=== PATIENT | female | born 1965 | race Caucasian/White ===

== ENCOUNTER 2016-05-31 01:26 | Emergency (ER) | payer BC ==
[~2016-05-31] VITALS: Ht 180.3 cm; Wt 61.2 kg
[~2016-05-31 01:26] MED LIST: ADDERAL20 MG ORAL; FERROUS SULFAT325 MG ORAL; KLONOPIN1 MG ORAL; LEVOFLOXACIN500 MG ORAL; NKM; NORCO 10-325 T1 EACH ORAL; VIBRAMYCIN100 MG ORAL
[2016-05-31] MEDS ORDERED: Norco 5mg/325mg tab ORAL ONE (02:00)
[2016-05-31] MEDS ORDERED: Bactrim DS (160mg/800mg) tab ORAL ONE (02:00)
[2016-05-31] MEDS ORDERED: BACTRIM DS TAB1 EAC1 ORAL (02:40)
--- NOTE | 2016-05-31 02:41 | Emergency Room Report ---
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 She's been here several times before. Also been to [place]. Patient presents with abscess 2 bilateral thigh. When it started draining. Denies any fever chills denies any nausea vomiting. Pain is 10 out of 10. The symptom in the past. She came here with several suitcases because she said she left her boyfriend. No other complaint. I admitted her last time and she was supposed to go to rehabilitation but eloped from the hospital. She never did go to rehabilitation. Supposedly she will go shortly. Allergies: Coded Allergies: CLONIDINE (Verified Allergy, Mild, 02/10/09) PENICILLINS (Unverified Allergy, Unknown, 12/25/15) Patient History Past Medical History: see triage record, old chart reviewed Past Surgical History: other Pertinent Family History: none Social History: Reports: drug use, smoking Now: No Immunizations: other Reviewed Nursing Documentation: PMH: Agreed, PSxH: Agreed Nursing Documentation-PMH Hx Cardiac Problems: No Hx Cancer: No Hx Gastrointestinal Problems: No Hx Neurological Problems: No Review of Systems Eye: Denies: blurred vision, eye pain ENT: Denies: ear pain, nose congestion, throat swelling Respiratory: Denies: cough, shortness of breath Cardiovascular: Denies: chest pain, palpitations Gastrointestinal: Denies: abdominal pain, diarrhea, nausea, vomiting Musculoskeletal: Denies: back pain, joint pain Skin: Reports: lesions, rash Neurological: Denies: headache, numbness Endocrine: Denies: increased thirst, increased urine Hematologic/Lymphatic: Denies: easy bruising All Other Systems: negative except mentioned in HPI Physical Exam Vital Signs Date Time Temp Pulse Resp B/P Pulse Ox O2 Delivery O2 Flow Rate FiO2 05/31/16 01:49 99.7 118 16 151/81 96 Room Air vitals with tachycardia Sp02 EP Interpretation: reviewed, normal General Appearance: no apparent distress, alert, thin, Chronically Ill Head: normocephalic, atraumatic Eyes: bilateral eye EOMI, bilateral eye PERRL ENT: hearing grossly normal, normal pharynx Neck: full range of motion, supple, no meningismus Respiratory: chest non-tender, lungs clear, normal breath sounds Cardiovascular #1: regular rate, rhythm, no murmur Gastrointestinal: normal bowel sounds, non tender, no mass, no organomegaly, no bruit, non-distended Musculoskeletal: back normal, gait/station normal, normal range of motion Neurologic: alert, oriented x3 Psychiatric: mood/affect normal Skin: warm/dry, other - Patient with multiple abrasion/previous lesion from scarring from previous abscesses. She has a draining abscess on the left thigh. There is some redness. Tender to palpation. She has a fluctuant area on the right thigh. Has surrounding tenderness and redness. Medical Decision Making Diagnostic Impression: Primary Impression: Abscess of left buttock Additional Impressions: Abscess of right buttock Amphetamine abuse Abrasion or friction burn of hand with infection ER Course Patient presents with abscesses in the same area. This is secondary to drug abuse. She grew out MRSA in the past. It is sensitive to fluoroquinolones and Bactrim. This is resistant to clindamycin. I gave her a dose of Bactrim here. I advised her to have the abscess I&D. She refused. She said she want to go to her infectious disease doctor. I explained to her that in order to get better and he can be I&D. Or it has to drainage own. My advice is to have an I &D. Patient is increased risk for sepsis and deterioration secondary to her poor immune system and drug use. She does not want to stay. She does not want to have the procedure done here. I went to the same process with her here in [place] and at [facility] before. Last Vital Signs Date Time Temp Pulse Resp B/P Pulse Ox O2 Delivery O2 Flow Rate FiO2 05/31/16 01:49 99.7 118 16 151/81 96 Room Air Status: improved Disposition: HOME, SELF-CARE Condition: Stable Scripts Trimethoprim/Sulfamethoxazole 160/800* (BACTRIM DS TABLET*) 1 Each Tablet 1 TAB ORAL Q12H, #20 TAB 0 Refills Prov: KERON ROSSI M.D. 05/31/16 Referrals: SAM ALEJANDRO (PCP) Additional Instructions: Followup your DrMain in one to 2 days. We'll abscess need to be drained. Return if you changed your mind. Return if symptom worsen. KERON ROSSI M.D. May 31, 2016 02:41
[2016-05-31 02:52] VITALS: BP 151/81
== END 2016-05-31 02:55 | disposition home or self-care (01) ==
LOC: EMR 01:43
DX: L02.31 Cutaneous abscess of buttock (principal); F15.10 Other stimulant abuse, uncomplicated; Z86.14 Personal history of Methicillin resistant Staphylococcus aureus infection; L02.416 Cutaneous abscess of left lower limb
CPT/HCPCS: 99283

== ENCOUNTER 2016-11-29 20:32 | Inpatient (IN) | payer BC ==
[~2016-11-29] VITALS: Ht 180.3 cm; Wt 59.0 kg
[~2016-11-29 20:32] MED LIST changes: +BACTRIM DS TAB1 EAC1 ORAL
[2016-11-29] MEDS ORDERED: Vancomycin 1 GM in NS 275 ML IV ONE (21:15)
[2016-11-29] MEDS ORDERED: Vancomycin 1gm inj IVPB ONE (21:52)
[2016-11-29] MEDS ORDERED: Tubing IV Cassette IV ONE (21:52)
[2016-11-29 21:59] LABS: MEAN CORPUSCULAR HEMOGLOBIN 20.5 PG (27.0-31.0); MEAN CORPUSCULAR HGB CONC 30.9 G/DL (32.0-36.0); MEAN CORPUSCULAR VOLUME 66 FL (80-99); MEAN PLATELET VOLUME 4.6 FL (6.5-10.1); PLATELET COUNT 530 K/UL (150-450); RED BLOOD COUNT 3.67 M/UL (4.20-5.40); RED CELL DISTRIBUTION WIDTH 16.3 % (11.6-14.8); WHITE BLOOD COUNT 12.3 K/UL (4.8-10.8)
[2016-11-29] MEDS ORDERED: HYDROmorphone 1mg/ml Carpuject IVP ONE (22:00)
[2016-11-29 22:13] LABS: PROTHROMBIN TIME 10.6 SEC (9.30-11.50)
[2016-11-29 22:27] LABS: TROPONIN I < 0.30 ng/mL (<=0.30)
[2016-11-29 22:30] LABS: ALANINE AMINOTRANSFERASE 6 U/L (3-33); ALBUMIN/GLOBULIN RATIO 0.6 (1.0-2.7); ANION GAP 12 (5-15); ASPARTATE AMINO TRANSFERASE 12 U/L (5-40); CALCIUM 8.6 mg/dL (8.6-10.2); CARBON DIOXIDE 27 mEQ/L (20-30); CHLORIDE 94 mEQ/L (98-107); CREATININE 0.7 mg/dL (0.5-0.9); GLOMERULAR FILTRATION RATE > 60 mL/min (>60); HEMOLYSIS 0; POTASSIUM 3.7 mEQ/L (3.4-4.9); SODIUM 133 mEQ/L (135-145)
[2016-11-29 22:50] VITALS: BP 105/53
[2016-11-29 22:56] LABS: BAND NEUTROPHILS % (MANUAL) 2 % (0-8); BASOPHILS % (MANUAL) 0 % (0-2); EOSINOPHILS % (MANUAL) 3 % (0-3); LYMPHOCYTES % (MANUAL) 16 % (20-45); NEUTROPHILS % (MANUAL) 76 % (45-75); PLATELET ESTIMATE INCREASED; TOTAL CELLS COUNTED 100
[2016-11-29 22:57] LABS: ANISOCYTOSIS 1+; HYPOCHROMASIA 2+; MICROCYTES 2+; PLATELET MORPHOLOGY NORMAL; POLYCHROMASIA 1+
[2016-11-29] MEDS ORDERED: Miralax 17gm pkt ORAL PRN (23:00)
[2016-11-29] MEDS ORDERED: Nitroglycerin Subl 0.4mg tab (Bottle Of 25) SL PRN (23:00)
[2016-11-29] MEDS ORDERED: Bactrim DS (160mg/800mg) tab ORAL SCH (23:00)
[2016-11-29] MEDS ORDERED: DuoNeb 0.5-3(2.5)mg/3ml neb HHN PRN (23:00)
[2016-11-29 23:09] LABS: ERYTHROCYTE SEDIMENTATION RATE 115 MM/HR (0-20)
[2016-11-29 23:49] LABS: APPEARANCE,URINE SLIGHTLY CLOUDY; KETONES,URINE NEGATIVE (NEGATIVE); LEUKOCYTE ESTERASE ,URINE 1+ (NEGATIVE); NITRITE,URINE POSITIVE (NEGATIVE); PH,URINE 7 (4.5-8.0); PROTEIN,URINE NEGATIVE (NEGATIVE); UROBILINOGEN,URINE 1 MG/DL (0.0-1.0)
[2016-11-29 23:59] LABS: BACTERIA,URINE MANY /HPF; SQUAMOUS EPITHELIAL CELL,UR FEW /LPF (NONE/OCC)
[2016-11-30] MEDS: Morphine Sulfate 2mg/ml Inj IVP PRN ×2 (01:40→05:40)
--- NOTE | 2016-11-30 05:11 | Emergency Room Report ---
History of Present Illness General Chief Complaint: Skin Rash/Abscess Source: Patient, Medical Record Present Illness HPI Patient presents with worsening pain and swelling in her left hip area. She states she has an MRSA in flexion there at this time. She's had some chills without documented fever. The pain is severe at this time. She's also swelling and redness of the skin there. She's injected several different drugs into her muscles and skin. She states that she is sober at this time. She's on Klonopin. Is admitted for similar problem several times last year. She said I indeed performed in the past. Denies any dysuria, diarrhea, cough, sore throat, chest pain. She is depressed but not suicidal at this time. Allergies: Coded Allergies: CLONIDINE (Verified Allergy, Mild, 02/10/09) PENICILLINS (Unverified Allergy, Unknown, 12/25/15) Patient History Past Medical History: see triage record Past Surgical History: other - i and d Social History: Reports: drug use Social History Narrative own apartment Reviewed Nursing Documentation: PMH: Agreed, PSxH: Agreed Nursing Documentation-PMH Hx Cardiac Problems: No Hx Cancer: No Hx Gastrointestinal Problems: No Hx Neurological Problems: No Review of Systems All Other Systems: negative except mentioned in HPI Physical Exam Vital Signs Date Time Temp Pulse Resp B/P Pulse Ox O2 Delivery O2 Flow Rate FiO2 11/29/16 20:52 98.2 94 16 136/83 100 Room Air Sp02 EP Interpretation: reviewed, normal General Appearance: no apparent distress, GCS 15, Chronically Ill Head: normocephalic Eyes: bilateral eye PERRL, bilateral eye normal inspection ENT: moist mucus membranes Neck: supple Respiratory: lungs clear, normal breath sounds Cardiovascular #1: regular rate, rhythm Cardiovascular #2: 2+ radial (R) Gastrointestinal: normal inspection, normal bowel sounds, non tender, no mass, non-distended Musculoskeletal: back normal, gait/station normal, normal range of motion Neurologic: alert, oriented x3, other - slurred speech, grossly normal Psychiatric: depressed affect Skin: warm/dry, other - multiple injection sites with erythema, L hip area has indurated area and erythema Medical Decision Making Diagnostic Impression: Primary Impression: Cellulitis of left buttock Additional Impressions: Amphetamine abuse UTI (urinary tract infection) Qualified Codes: N30.00 - Acute cystitis without hematuria Opiate dependence Qualified Codes: F11.29 - Opioid dependence with unspecified opioid-induced disorder ER Course Patient presents with induration and erythema of the left hip area with fever. Differential includes abscess, cellulitis, injection granuloma, medication reaction amongst others. The patient has a long history of MRSA. The infected area is quite large and I am uncomfortable performing ID in the emergency department. The patient is chronically ill and I recommended she come into the hospital for IV antibiotics. Evaluation will be with labs, x-ray. We need to exclude osteomyelitis. In addition to that she will be treated with analgesia and also vancomycin after blood cultures were performed. Labs with leukocytosis. EKG chest x-ray unremarkable. Dr. Cruz was contacted. He is on vacation and signed out to Dr. Ortiz. Patient was admitted to medical floor under the care of Dr. Ortiz. Dr. Mcdonald called after noticing somebody else then ordered medication for her. It was made clear to this physician that Dr. Mcdonald the patient's primary physician. Improved with treatment. Laboratory Tests Test 11/29/16 21:30 11/29/16 22:00 White Blood Count 12.3 K/UL (4.8-10.8) H Red Blood Count 3.67 M/UL (4.20-5.40) L Hemoglobin 7.5 G/DL (12.0-16.0) L Hematocrit 24.4 % (37.0-47.0) L Mean Corpuscular Volume 66 FL (80-99) L Mean Corpuscular Hemoglobin 20.5 PG (27.0-31.0) L Mean Corpuscular Hemoglobin Concent 30.9 G/DL (32.0-36.0) L Red Cell Distribution Width 16.3 % (11.6-14.8) H Platelet Count 530 K/UL (150-450) H Mean Platelet Volume 4.6 FL (6.5-10.1) L Neutrophils (%) (Auto) % (45.0-75.0) Lymphocytes (%) (Auto) % (20.0-45.0) Monocytes (%) (Auto) % (1.0-10.0) Eosinophils (%) (Auto) % (0.0-3.0) Basophils (%) (Auto) % (0.0-2.0) Differential Total Cells Counted 100 Neutrophils % (Manual) 76 % (45-75) H Lymphocytes % (Manual) 16 % (20-45) L Monocytes % (Manual) 3 % (1-10) Eosinophils % (Manual) 3 % (0-3) Basophils % (Manual) 0 % (0-2) Band Neutrophils 2 % (0-8) Platelet Estimate Increased H Platelet Morphology Normal Polychromasia 1+ Hypochromasia 2+ Anisocytosis 1+ Microcytosis 2+ Erythrocyte Sedimentation Rate 115 MM/HR (0-20) H Prothrombin Time 10.6 SEC (9.30-11.50) Prothrombin Time INR 1.0 (0.9-1.1) PTT 31 SEC (23-33) Sodium Level 133 mEQ/L (135-145) L Potassium Level 3.7 mEQ/L (3.4-4.9) Chloride Level 94 mEQ/L (98-107) L Carbon Dioxide Level 27 mEQ/L (20-30) Anion Gap 12 (5-15) Blood Urea Nitrogen 19 mg/dL (7-23) Creatinine 0.7 mg/dL (0.5-0.9) Estimate Glomerular Filtration Rate > 60 mL/min (>60) Glucose Level 92 mg/dL (74-106) Lactic Acid Level 1.70 mmol/L (0.66-2.22) Calcium Level 8.6 mg/dL (8.6-10.2) Total Bilirubin 0.2 mg/dL (0.0-1.2) Aspartate Amino Transferase (AST) 12 U/L (5-40) Alanine Aminotransferase (ALT) 6 U/L (3-33) Alkaline Phosphatase 75 U/L (35-104) Total Creatine Kinase 57 U/L (26-140) Troponin I < 0.30 ng/mL (<=0.30) Total Protein 9.0 g/dL (6.6-8.7) H Albumin 3.4 g/dL (3.5-5.2) L Globulin 5.6 g/dL Albumin/Globulin Ratio 0.6 (1.0-2.7) L Urine Color Pale yellow Urine Appearance Slightly cloudy Urine pH 7 (4.5-8.0) Urine Specific [place] 1.030 (1.005-1.035) Urine Protein Negative (NEGATIVE) Urine Glucose (UA) Negative (NEGATIVE) Urine Ketones Negative (NEGATIVE) Urine Occult Blood 2+ (NEGATIVE) H Urine Nitrite Positive (NEGATIVE) H Urine Bilirubin Negative (NEGATIVE) Urine Urobilinogen 1 MG/DL (0.0-1.0) H Urine Leukocyte Esterase 1+ (NEGATIVE) H Urine RBC 2-4 /HPF (0 - 2) H Urine WBC 5-10 /HPF (0 - 2) H Urine Squamous Epithelial Cells Few /LPF (NONE/OCC) Urine Bacteria Many /HPF (NONE) H Urine Opiates Screen Positive (NEGATIVE) H Urine Barbiturates Screen Negative (NEGATIVE) Phencyclidine (PCP) Screen Negative (NEGATIVE) Urine Amphetamines Screen Positive (NEGATIVE) H Urine Benzodiazepines Screen Negative (NEGATIVE) Urine Cocaine Screen Negative (NEGATIVE) Urine Marijuana (THC) Screen Negative (NEGATIVE) EKG Diagnostic Results Rate: tachycardiac ST Segments: no acute changes Rhythm Strip Diag. Results EP Interpretation: yes Rhythm: no PVC's, no ectopy, other - ST Chest X-Ray Diagnostic Results Chest X-Ray Diagnostic Results : Chest X-Ray Ordered: Yes # of Views/Limited/Complete: 1 View Indication: Other EP Interpretation: Yes Interpretation: no consolidation, no effusion, no pneumothorax Impression: No acute disease Interpreting ER Provider: Electronically signed by Tevin Huynh MD Other X-Ray Diagnostic Results Other X-Ray Diagnostic Results : X-Ray ordered: Pelvis # of Views/Limited Vs Complete: 1 View Indication: Other Interpretation: no dislocation, no fractures, other - STS Impression: Other Interpreting ER Provider: Electronically signed by Tevin Huynh MD Last Vital Signs Date Time Temp Pulse Resp B/P Pulse Ox O2 Delivery O2 Flow Rate FiO2 11/29/16 23:20 100.7 97 16 105/53 99 Room Air Status: improved Disposition: ADMITTED INPATIENT Condition: Serious Referrals: LYUDMILA CRUZ (PCP) Tevin Huynh M.D. Nov 30, 2016 05:11
[2016-11-30 08:00] VITALS: BP 134/82
[2016-11-30] MEDS: Heparin 5000 units/ml inj SUBQ SCH ×2 (09:00→21:00)
[2016-11-30] MEDS ORDERED: Cefepime HCl 2 GM in D5W 110 ML IV SCH (09:00)
[2016-11-30] MEDS: HYDROmorphone 1mg/ml Carpuject IVP PRN ×4 (09:55→23:52)
[2016-11-30] MEDS: Vancomycin 1 GM in D5W 275 ML IVPB SCH ×2 (10:05→21:00)
--- NOTE | 2016-11-30 10:57 | Diagnostic Imaging Report ---
Indication: Chest pain Technique: One view of the chest Comparison: 06/04/2015 Findings: Lungs and pleural spaces are clear. There is evidence of prior left mastectomy and a prosthesis. Heart size is normal. No significant interim change Impression: No acute process This agrees with the preliminary interpretation provided by the emergency room physician
--- NOTE | 2016-11-30 10:58 | Diagnostic Imaging Report ---
Indication: Pain, no trauma Technique: One view of the pelvis Comparison: 06/04/2015 Findings: No acute fractures. No dislocations. Joint spaces are preserved. There are degenerative changes of the lower lumbar spine. There is considerable retained fecal material Impression: No acute process Degenerative spondylosis Constipation This agrees with the preliminary interpretation provided by the emergency room physician
[2016-11-30 11:58] VITALS: BP 134/75
--- NOTE | 2016-11-30 13:43 | Infectious Diseases Prog Note ---
Assessment/Plan Assessment/Plan Full consult dictated: A) 1) bilateral hip/leg abscesses with cellulitis 2) ? uti 3) leukocytosis 4) allergies - clonidine and pcn P) 1) vancomycin and cipro 2) check wc, uc, bc, labs 3) surgery evaluation for possible debridement 4) d/w Dr. Ortiz 5) thank you Subjective Allergies: Coded Allergies: CLONIDINE (Verified Allergy, Mild, 02/10/09) PENICILLINS (Unverified Allergy, Unknown, 12/25/15) Objective Vital Signs Last 24 Hour Vital Signs Date Time Temp Pulse Resp B/P Pulse Ox O2 Delivery O2 Flow Rate FiO2 11/30/16 11:58 97.9 66 20 134/75 98 Room Air 11/30/16 08:00 97.8 72 20 134/82 98 Room Air 11/29/16 23:20 100.7 97 16 105/53 99 Room Air 11/29/16 22:50 100.7 97 16 105/53 99 Room Air 11/29/16 22:28 98.2 11/29/16 20:52 98.2 94 16 136/83 100 Room Air Height (Feet): 5 Height (Inches): 11.00 Weight (Pounds): 130 Laboratory Tests Test 11/29/16 21:30 11/29/16 22:00 White Blood Count 12.3 K/UL (4.8-10.8) H Red Blood Count 3.67 M/UL (4.20-5.40) L Hemoglobin 7.5 G/DL (12.0-16.0) L Hematocrit 24.4 % (37.0-47.0) L Mean Corpuscular Volume 66 FL (80-99) L Mean Corpuscular Hemoglobin 20.5 PG (27.0-31.0) L Mean Corpuscular Hemoglobin Concent 30.9 G/DL (32.0-36.0) L Red Cell Distribution Width 16.3 % (11.6-14.8) H Platelet Count 530 K/UL (150-450) H Mean Platelet Volume 4.6 FL (6.5-10.1) L Neutrophils (%) (Auto) % (45.0-75.0) Lymphocytes (%) (Auto) % (20.0-45.0) Monocytes (%) (Auto) % (1.0-10.0) Eosinophils (%) (Auto) % (0.0-3.0) Basophils (%) (Auto) % (0.0-2.0) Differential Total Cells Counted 100 Neutrophils % (Manual) 76 % (45-75) H Lymphocytes % (Manual) 16 % (20-45) L Monocytes % (Manual) 3 % (1-10) Eosinophils % (Manual) 3 % (0-3) Basophils % (Manual) 0 % (0-2) Band Neutrophils 2 % (0-8) Platelet Estimate Increased H Platelet Morphology Normal Polychromasia 1+ Hypochromasia 2+ Anisocytosis 1+ Microcytosis 2+ Erythrocyte Sedimentation Rate 115 MM/HR (0-20) H Prothrombin Time 10.6 SEC (9.30-11.50) Prothromb Time International Ratio 1.0 (0.9-1.1) Activated Partial Thromboplast Time 31 SEC (23-33) Sodium Level 133 mEQ/L (135-145) L Potassium Level 3.7 mEQ/L (3.4-4.9) Chloride Level 94 mEQ/L (98-107) L Carbon Dioxide Level 27 mEQ/L (20-30) Anion Gap 12 (5-15) Blood Urea Nitrogen 19 mg/dL (7-23) Creatinine 0.7 mg/dL (0.5-0.9) Estimat Glomerular Filtration Rate > 60 mL/min (>60) Glucose Level 92 mg/dL (74-106) Lactic Acid Level 1.70 mmol/L (0.66-2.22) Calcium Level 8.6 mg/dL (8.6-10.2) Total Bilirubin 0.2 mg/dL (0.0-1.2) Aspartate Amino Transf (AST/SGOT) 12 U/L (5-40) Alanine Aminotransferase (ALT/SGPT) 6 U/L (3-33) Alkaline Phosphatase 75 U/L (35-104) Total Creatine Kinase 57 U/L (26-140) Troponin I < 0.30 ng/mL (<=0.30) Total Protein 9.0 g/dL (6.6-8.7) H Albumin 3.4 g/dL (3.5-5.2) L Globulin 5.6 g/dL Albumin/Globulin Ratio 0.6 (1.0-2.7) L Urine Color Pale yellow Urine Appearance Slightly cloudy Urine pH 7 (4.5-8.0) Urine Specific [place] 1.030 (1.005-1.035) Urine Protein Negative (NEGATIVE) Urine Glucose (UA) Negative (NEGATIVE) Urine Ketones Negative (NEGATIVE) Urine Occult Blood 2+ (NEGATIVE) H Urine Nitrite Positive (NEGATIVE) H Urine Bilirubin Negative (NEGATIVE) Urine Urobilinogen 1 MG/DL (0.0-1.0) H Urine Leukocyte Esterase 1+ (NEGATIVE) H Urine RBC 2-4 /HPF (0 - 2) H Urine WBC 5-10 /HPF (0 - 2) H Urine Squamous Epithelial Cells Few /LPF (NONE/OCC) Urine Bacteria Many /HPF (NONE) H Urine Opiates Screen Positive (NEGATIVE) H Urine Barbiturates Screen Negative (NEGATIVE) Phencyclidine (PCP) Screen Negative (NEGATIVE) Urine Amphetamines Screen Positive (NEGATIVE) H Urine Benzodiazepines Screen Negative (NEGATIVE) Urine Cocaine Screen Negative (NEGATIVE) Urine Marijuana (THC) Screen Negative (NEGATIVE) Current Medications Medications (Trade) Dose Ordered Sig/Gildardo Route PRN Reason Start Time Stop Time Status Last Admin Dose Admin Acetaminophen (Tylenol) 650 mg Q4H PRN ORAL fever 11/29/16 23:00 12/29/16 22:59 11/29/16 23:14 Albuterol/ Ipratropium (DuoNeb 0.5-3(2.5)mg/3ml) 3 ml Q4H PRN HHN Shortness of Breath 11/29/16 23:00 12/04/16 22:59 Ciprofloxacin (Cipro 400mg/ 200ml premix bag) 200 ml @ 200 mls/hr Q12HR IVPB 11/30/16 09:00 12/07/16 08:59 Dextrose (Dextrose 50%) STAT PRN IV Hypoglycemia 11/29/16 23:00 12/29/16 22:59 Heparin Sodium (Porcine) 5000 units 5,000 units EVERY 12 HOURS SUBQ 11/30/16 09:00 12/30/16 08:59 Hydromorphone HCl (Dilaudid) 1 mg Q4H PRN IVP For Pain 11/30/16 07:00 12/07/16 06:59 11/30/16 09:55 Nitroglycerin (Ntg) 0.4 mg Every 5 Minutes PRN SL Prn Chest Pain 11/29/16 23:00 12/29/16 22:59 Ondansetron HCl (Zofran) 4 mg Q4H PRN IVP Nausea & Vomiting 11/30/16 07:00 12/30/16 06:59 Polyethylene Glycol (Miralax) 17 gm DAILYPRN PRN ORAL Constipation 11/29/16 23:00 12/29/16 22:59 Temazepam (Restoril) 15 mg HSPRN PRN ORAL Insomnia 11/29/16 23:00 12/06/16 22:59 Vancomycin HCl 1 ea 1 ea DAILY PRN MISC PER PROTOCOL 11/29/16 23:15 12/29/16 23:14 Vancomycin HCl/ Dextrose (Vancomycin/D5W) 275 ml @ 183.3 mls/ hr Q12H IVPB 11/30/16 09:00 12/05/16 08:59 11/30/16 10:05 SAM ALEJANDRO Nov 30, 2016 13:43
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
[2016-11-30 16:00] VITALS: BP 143/83
--- NOTE | 2016-11-30 16:37 | History & Physical ---
History and Physical History & Physicial Osman Ortiz MD Nov 30, 2016 16:36
[2016-11-30] MEDS ORDERED: HydrALAZINE 10mg Tab ORAL PRN (19:15)
--- NOTE | 2016-11-30 19:15 | History and Physical Report ---
DATE OF ADMISSION: 11/29/2016 CHIEF COMPLAINT: Skin rashes and abscess. HISTORY OF PRESENT ILLNESS: This is a 51-year-old female with past medical history significant for substance abuse, heroin abuse, injectables with history of intravenous drug abuse who presented to the hospital complained about left hip tender to touch. The patient has a history of MRSA infection of the wound in the past and that she has complained about the chills without any documented fever. The pain became progressively worsening and subsequently, the patient decided to come to the hospital. Shortly after initial evaluation in the emergency, the patient was admitted to the hospital with cellulitis, abscess of the lower extremity and history of IV drug abuse. PAST MEDICAL HISTORY/PAST SURGICAL HISTORY: As above, history of drug abuse. History is very limited secondary to the patient. History is mostly taken from the ER chart and the patient at bedside, but she is is poor historian, did not want to communicate. Prior history of incision and drainage of abscess in the past. MEDICATIONS: Medications at home is significant for Adderall as well as a Bactrim. ALLERGIES: Clonidine and penicillin. SOCIAL HISTORY: The patient has a history of IV drug abuse, heroin. Denies any alcohol abuse. FAMILY HISTORY: Noncontributory. REVIEW OF SYSTEMS: Mostly as above. No fevers. Positive chills. No nausea or vomiting. Denies any hemoptysis or hematochezia. Complains of abdominal discomfort. Feeling depressed. No suicidal or homicidal ideation. PHYSICAL EXAMINATION: GENERAL: The patient is awake, responsive, no acute distress. VITAL SIGNS: On admission, temperature 98.2 degrees, pulse of 94, respirations 16, and blood pressure 136/83. HEAD AND NECK: Pupils are reactive to light. Extraocular movements are intact. Neck was supple. No JVD. LUNGS: Good air entry. No wheezes or rales. HEART: S1 and S2. Regular rhythm. No gallops. ABDOMEN: Soft, nondistended, and nontender. Positive bowel sounds. EXTREMITIES: No cyanosis or clubbing. Multiple injection of both sites was noted in the lower extremity as well as upper extremities left hip area as endurable area with erythema. NEUROLOGIC: Cranial nerves II through XII are grossly intact. Motor strength is 5/5 in all four extremities. LABORATORY AND DIAGNOSTIC DATA: On admission from the ER, WBC of 12.3, hemoglobin of 7.5, hematocrit 24 and platelet is 530,000. PT of 10, INR 1.0 and PTT of 31. Sodium 133, potassium 3.7, chloride 94, bicarbonate 27, BUN 19, creatinine 0.7, and glucose 92. Lactic acid 1.70. Troponin less than 0.30. Albumin is 3.4. Urinalysis has +2 occult blood, positive nitrates, and 5-10 WBC. PT of 10, INR 1.0 and PTT of 31. The patient had an x-ray of the hip shows that no acute process, degenerative spondylolysis, and constipation. Chest x-ray, no acute process. ASSESSMENT: 1. Abscess in the right thigh area with cellulitis. 2. History of substance abuse with intravenous drug abuse. 3. Anemia. 4. Urinary tract infection. PLAN: Admit the patient to medical/surgical. We will follow up with Dr. Eda Rankin from ID. Recommendation, vancomycin and Cipro. Surgical evaluation for incision and drainage and debridement of the wound. Pain medication. We will monitor laboratory in the morning. Code status is Full Code. Osman Ortiz M.D. DR: DANIELE JOB#: [id number] CC:
--- NOTE | 2016-11-30 19:45 | Consultation ---
DATE OF CONSULTATION: 11/30/2016 INFECTIOUS DISEASE CONSULTATION CONSULTING PHYSICIAN: Eda Rankin M.D. ATTENDING PHYSICIAN: Osman Ortiz M.D. REASON FOR CONSULTATION: Bilateral hip and leg abscesses and cellulitis and elevated white count, possible UTI. CHIEF COMPLAINT: The patient's chief complaint is cellulitis and abscesses. HISTORY OF PRESENT ILLNESS: This is a 51-year-old female, who comes in to [facility] with bilateral hip and leg abscesses and cellulitis. It is unclear how long the patient has been there, but she has severe pain. The patient was admitted for IV antibiotics and possible debridement. The patient is on vancomycin and Cipro. She is allergic to clonidine and penicillin. She has a history of Staph aureus since cellulitis I believe, possibly MRSA in the past. Infectious Disease consultation was requested for antibiotic management. Case was discussed with Dr. Ortiz and also discussed with the ER physician and the RN. PAST MEDICAL HISTORY: The patient's past medical history includes history of cellulitis and abscesses in the past. She has a history of MRSA infection it looks like. She has a history of a drug injection in the muscles and skin. No history of diabetes or hypertension. She also has a history of UTI in the past it looks like, anemia, opioid dependency, amphetamine use, and pain management. MEDICATIONS: Upon reviewing the MAR, she is on the following medications. She is on vancomycin and Cipro. Vancomycin has been dosed by pharmacy. She is also on Dilaudid. She is on Zofran, nitroglycerin, temazepam, and polyethylene. She is on acetaminophen and albuterol treatments. ALLERGIES: Clonidine and penicillin. SOCIAL HISTORY: Positive for drug abuse, looks like intravenous drug injection. Positive for smoking. She has a history of and polysubstance abuse. FAMILY HISTORY: Noncontributory. REVIEW OF SYSTEMS: Constitutional: The patient has generalized weakness and fatigue. No night sweats. She did have fevers coming in, but not chills at this time. Head And Neck: No head pain, neck pain, thrush, or dysphagia. Cardiac: No chest pain or palpitations. Gastrointestinal: No nausea, vomiting, or diarrhea. Genitourinary: No dysuria or frequency. Pulmonary: No congestion, hemoptysis, or shortness of breath. Cardiac: No chest pain or palpitations. Skin: No rash. Neurologic: No seizures. She has bilateral hip and leg abscesses and cellulitis. PHYSICAL EXAMINATION: GENERAL: Alert, responsive, and in no acute distress. VITAL SIGNS: T-max 100.7 degrees, pulse rate as high as 97, respiratory rate 20, pulse rate now is 66, temperature is 97.9 degrees, saturation 98%, and blood pressure 134/75. HEAD AND NECK: Oral exam, no thrush. Eye exam, no icterus. Normocephalic. No facial droop. No neck stiffness. Neck is supple. HEART: Regular. No gallop or murmur. LUNGS: Clear bilaterally. No rhonchi or rales. ABDOMEN: Soft. Positive bowel sounds. Nontender. SKIN: No maculopapular rash. She does have bilateral hip and leg cellulitis and abscesses. Clinically, there is warmth and induration in these areas. MUSCULOSKELETAL: No effusion or contractures. She has cellulitis as discussed and abscesses of the lower extremities. PERIPHERAL VASCULAR: No cyanosis or gangrene. RECTAL: Deferred. GENITOURINARY: No [place]. LINES: Line site is without phlebitis. NEUROLOGIC: Intact. Nonfocal. LABORATORY DATA: Laboratory data is as follows: White count 12.3 and hemoglobin 7.5. Creatinine is 0.7. UA had 1+ leukocyte esterase, 5 to 10 white blood cells, and many bacteria. Urine culture is pending. Blood cultures are pending. ASSESSMENT AND PLAN: 1. The patient has bilateral hip and leg abscesses and cellulitis, elevated white count, and fevers, questionable urinary tract infection. At this time, we will continue with vancomycin with Cipro. We will check wound culture, blood cultures, and urine culture. The patient will likely need a Surgery evaluation for possible debridement of the bilateral hip and leg abscesses with cellulitis. Check followup labs. Continue vancomycin and Cipro for now. 2. The patient has a history of anemia. 3. Pain management. 4. History of drug abuse. 5. History of smoking. 6. History of abscesses in the past and urinary tract infections. 7. History of amphetamine use. 8. Opioid dependency. 9. No history of diabetes or hypertension. 10. Allergies to clonidine and penicillin. 11. Social history is positive for smoking and drug abuse. 12. MAR was noted. 13. Case was discussed with RN. 14. Notes and records were reviewed. 15. Family history is noncontributory. 16. Case was discussed with Dr. Ortiz. Eda Rankin M.D. DR: SMILEY JOB#: [id number] CC:
[2016-11-30 20:00] VITALS: BP 148/86
--- NOTE | 2016-11-30 20:00 | Consultation ---
DATE OF CONSULTATION: INPATIENT CONSULTATION NOTE REASON FOR CONSULTATION: Bilateral soft tissue hip abscesses. HISTORY OF PRESENT ILLNESS: This is a 51-year-old female with a longstanding history of IV drug abuse including heroin as well as multiple polysubstance abuse and history of MRSA infection, who presented to the emergency department last night with a chief complaint of pain. The patient states that she is unwilling to answer my questions and the majority of the history was obtained from the chart. PAST MEDICAL HISTORY: Includes heroin use, IV drug use, history of narcotic dependency, history of pain management, anemia, and polysubstance abuse. PAST SURGICAL HISTORY: She also has a history of multiple hospital admissions for cellulitis. MEDICATIONS: She is currently on vancomycin. Please see medications in the medical order. ALLERGIES: Clonidine and penicillin. SOCIAL HISTORY: Positive for smoking and positive for heroin use. FAMILY HISTORY: Noncontributory. REVIEW OF SYSTEMS: Negative for fever and chills. No night sweats. I was unable to obtain any further information from her regarding the review of systems. PHYSICAL EXAMINATION: GENERAL: This is a well-developed female, who is in no distress. VITAL SIGNS: She has a temperature of 97.9 degrees, pulse of 66, respiratory rate of 20, blood pressure 134/75, and pulse oximetry of 98% on room air. EXTREMITIES: Evaluation of the bilateral lower extremities reveals large area of erythema and induration on both lower extremities covering the lateral hip as well as the lateral upper thigh area. There is mild tenderness to palpation. There are multiple track sharp noted throughout the extensive soft tissue area on each side. Upon palpation, no pus or fluid was able to be expressed from any of the openings. There is no odor. No fluctuance noted. LABORATORY DATA: Laboratory evaluation includes a white blood cell count dated 11/29/2016 of 12.3, hemoglobin 7.5, and hematocrit 24.4, and platelet count 530,000. Sodium level 133, potassium 3.7, chloride 94, and carbon dioxide 27. BUN is 19 and creatinine is 0.7. Glucose of 92. Lactic acid level is 1.7. ASSESSMENT: Pain. PLAN: The patient has a history of IV drug abuse and polysubstance abuse and has required multiple hospital admissions in the past for the same. She does have extensive erythema over the bilateral hips and upper lateral thigh areas with multiple visible track sharp noted. There is no fluid that was expressed from either side and no fluctuance on exam. The patient is at increased risk for wound healing issues. I am recommending an imaging study such as a CAT scan to assess for the presence of fluid collection within the subcutaneous tissue plane. In the absence of a fluid collection amenable to drainage, would recommend antibiotic management per ID. Other considerations include cellulitis versus a granulomatous reaction. Will follow the patient as needed. Erwin Luna M.D. DR: JEN JOB#: [id number] CC: ADRIENNE
--- NOTE | 2016-11-30 20:32 | Wound Care Consultation ---
Wound Assessment Wound Assessment : Wound Number: #1 Wound Present on Admission: Yes New Wound: No Status Change of Wound: No Wound Location Body Site Modif: left, right Wound Location Body Site: trochanter - and lower legs with multiple wounds and abscess on both hips Wound Type: lesion-etiology unknown Héctor Test: Does not Héctor Wound Thickness: Full Thickness Wound Drainage Description: Foul Purulent Wound Drainage Amount: Scant Wound Drainage Odor: None/Absent Tissue Surrounding Wound: Indurated Wound General Appearance: Reddened, Draining Wound Comment #1 Left and right trochanter abscess and multiple open wounds on both upper and lower legs Recommendation -Local wound care per MD order -Keep clean and dry -Optimize nutrition -Assess and f/u accordingly AZALIA STEVENS RN Nov 30, 2016 20:32
[2016-12-01] VITALS: BP 153/95
[2016-12-01] MEDS: HYDROmorphone 1mg/ml Carpuject IVP PRN ×5 (03:53→22:55)
[2016-12-01 04:00] VITALS: BP 148/73
[2016-12-01 08:00] VITALS: BP 152/97
[2016-12-01] MEDS: Heparin 5000 units/ml inj SUBQ SCH ×2 (08:05→20:50)
--- NOTE | 2016-12-01 10:58 | Pulmonology Progress Note ---
Assessment/Plan Assessment/Plan ASSESSMENT cellulitis Left buttock/hip bilateral hip abscess anemia UTI Polysubstance abuse ( IV drug abuse, amphetamine) hyponatremia cachexia possible severe protein calorie malnutrition HTN PLAN OF CARE [facility] floor abx fup with cx urine cx + GNR, blood cx preliminary negative, wound cx+ Staph aureus ID follows CT hip surgery eval noted wound care as per wound nurse recommendation transfuse-declined transfusion monitor HH, anemia workup ordered ( patient declined labs) stool OB s/p 1 L NS, judicious pain management, DVT prophayxlis venous Duplex BLE Hydralazine prn for elevated BP ( allergic to Clonidine) O2 HHN prn dietary eval 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 SS consult for placement case discussed and evaluated by supervising physician Subjective Allergies: Coded Allergies: CLONIDINE (Verified Allergy, Mild, 02/10/09) PENICILLINS (Unverified Allergy, Unknown, 12/25/15) Subjective no fever declined labs this am Objective Last 24 Hour Vital Signs Date Time Temp Pulse Resp B/P Pulse Ox O2 Delivery O2 Flow Rate FiO2 12/01/16 08:09 59 18 Room Air 12/01/16 08:00 97.7 56 20 152/97 99 Room Air 12/01/16 04:00 148/73 12/01/16 00:00 97.9 79 18 153/95 99 Room Air 11/30/16 20:21 97.3 11/30/16 20:05 70 20 Room Air 11/30/16 20:00 97.3 69 18 148/86 100 Room Air 11/30/16 16:00 97.8 68 20 143/83 100 Room Air 11/30/16 11:58 97.9 66 20 134/75 98 Room Air Intake and Output 11/30/16 12/01/16 19:00 07:00 Intake Total 360 ml Balance 360 ml Intake Oral 360 ml # Voids 2 2 # Bowel Movements 3 Objective General Appearance: no apparent distress, cachetic, other - awake, alert, chronically ill looking middle age female HEENT: normocephalic, atraumatic, anicteric, mucous membranes moist, PERRL Neck: non-tender, supple, normal inspection Respiratory/Chest: lungs clear, no respiratory distress, no accessory muscle use Cardiovascular/Chest: no JVD Abdomen: normal bowel sounds, non tender, soft Extremities: normal range of motion, non-tender, no calf tenderness, normal capillary refill, no edema Skin Exam: warm/dry, other - multiple injection sites with erythema, bilateral hip area with induration and erythema Neurologic: no motor/sensory deficits, alert, oriented x 3 Musculoskeletal: normal muscle bulk Microbiology Date/Time Source Procedure Growth Status 11/30/16 01:30 Wound Gram Stain - Final Resulted 11/30/16 01:30 Wound Culture - Preliminary Staphylococcus Aureus Resulted 11/29/16 22:00 Urine,Clean Catch Urine Culture - Preliminary Gram Negative Matt Resulted Current Medications Medications (Trade) Dose Ordered Sig/Gildardo Route PRN Reason Start Time Stop Time Status Last Admin Dose Admin Acetaminophen (Tylenol) 650 mg Q4H PRN ORAL fever 11/29/16 23:00 12/29/16 22:59 11/29/16 23:14 Albuterol/ Ipratropium (DuoNeb 0.5-3(2.5)mg/3ml) 3 ml Q4H PRN HHN Shortness of Breath 11/29/16 23:00 12/04/16 22:59 Dextrose (Dextrose 50%) STAT PRN IV Hypoglycemia 11/29/16 23:00 12/29/16 22:59 Heparin Sodium (Porcine) 5000 units 5,000 units EVERY 12 HOURS SUBQ 11/30/16 09:00 12/30/16 08:59 Hydralazine HCl (Apresoline) 10 mg Q6H PRN ORAL SBP > 160 11/30/16 19:15 12/30/16 19:14 Hydromorphone HCl (Dilaudid) 1 mg Q4H PRN IVP For Pain 11/30/16 07:00 12/07/16 06:59 12/01/16 07:58 Nitroglycerin (Ntg) 0.4 mg Every 5 Minutes PRN SL Prn Chest Pain 11/29/16 23:00 12/29/16 22:59 Ondansetron HCl (Zofran) 4 mg Q4H PRN IVP Nausea & Vomiting 11/30/16 07:00 12/30/16 06:59 12/01/16 03:53 Polyethylene Glycol (Miralax) 17 gm DAILYPRN PRN ORAL Constipation 11/29/16 23:00 12/29/16 22:59 Temazepam (Restoril) 15 mg HSPRN PRN ORAL Insomnia 11/29/16 23:00 12/06/16 22:59 Vancomycin HCl (Vanco rx to dose) 1 ea DAILY PRN MISC PER PROTOCOL 11/29/16 23:15 12/29/16 23:14 Vancomycin HCl/ Dextrose (Vancomycin/D5W) 275 ml @ 183.3 mls/ hr Q12H IVPB 11/30/16 09:00 12/05/16 08:59 11/30/16 10:05 David (Deisy)Flavia NP Dec 01, 2016 10:58
[2016-12-01] MEDS: Vancomycin 1 GM in D5W 275 ML IVPB SCH ×2 (12:38→20:43)
--- NOTE | 2016-12-01 13:13 | Internal Med Progress Note ---
Subjective Physician Name Osman Ortiz Attending Physician Osman Ortiz MD Current Medications Medications (Trade) Dose Ordered Sig/Gildardo Route PRN Reason Start Time Stop Time Status Last Admin Dose Admin Acetaminophen (Tylenol) 650 mg Q4H PRN ORAL fever 11/29/16 23:00 12/29/16 22:59 11/29/16 23:14 Albuterol/ Ipratropium (DuoNeb 0.5-3(2.5)mg/3ml) 3 ml Q4H PRN HHN Shortness of Breath 11/29/16 23:00 12/04/16 22:59 Dextrose (Dextrose 50%) STAT PRN IV Hypoglycemia 11/29/16 23:00 12/29/16 22:59 Heparin Sodium (Porcine) 5000 units 5,000 units EVERY 12 HOURS SUBQ 11/30/16 09:00 12/30/16 08:59 Hydralazine HCl (Apresoline) 10 mg Q6H PRN ORAL SBP > 160 11/30/16 19:15 12/30/16 19:14 Hydromorphone HCl (Dilaudid) 1 mg Q4H PRN IVP For Pain 11/30/16 07:00 12/07/16 06:59 12/01/16 12:37 Nitroglycerin (Ntg) 0.4 mg Every 5 Minutes PRN SL Prn Chest Pain 11/29/16 23:00 12/29/16 22:59 Ondansetron HCl (Zofran) 4 mg Q4H PRN IVP Nausea & Vomiting 11/30/16 07:00 12/30/16 06:59 12/01/16 03:53 Polyethylene Glycol (Miralax) 17 gm DAILYPRN PRN ORAL Constipation 11/29/16 23:00 12/29/16 22:59 Temazepam (Restoril) 15 mg HSPRN PRN ORAL Insomnia 11/29/16 23:00 12/06/16 22:59 Vancomycin HCl (Vanco rx to dose) 1 ea DAILY PRN MISC PER PROTOCOL 11/29/16 23:15 12/29/16 23:14 Vancomycin HCl/ Dextrose (Vancomycin/D5W) 275 ml @ 183.3 mls/ hr Q12H IVPB 11/30/16 09:00 12/05/16 08:59 8/19/17 12:38 Allergies: Coded Allergies: CLONIDINE (Verified Allergy, Mild, 02/10/09) PENICILLINS (Unverified Allergy, Unknown, 12/25/15) Subjective awake, alert, responsive, refused labs today Objective Last Vital Signs Date Time Temp Pulse Resp B/P Pulse Ox O2 Delivery O2 Flow Rate FiO2 12/01/16 08:09 59 18 Room Air 12/01/16 08:00 97.7 152/97 99 Microbiology Date/Time Source Procedure Growth Status 11/29/16 21:30 Blood Blood Culture - Preliminary NO GROWTH AFTER 24 HOURS Resulted 11/29/16 21:25 Blood Blood Culture - Preliminary NO GROWTH AFTER 24 HOURS Resulted 11/30/16 01:30 Wound Gram Stain - Final Resulted 11/30/16 01:30 Wound Culture - Preliminary Staphylococcus Aureus Resulted 11/29/16 22:00 Urine,Clean Catch Urine Culture - Preliminary Gram Negative Matt Resulted Intake and Output 11/30/16 12/01/16 19:00 07:00 Intake Total 360 ml Balance 360 ml Intake Oral 360 ml # Voids 2 2 # Bowel Movements 3 Objective HEAD AND NECK: Pupils are reactive to light. Extraocular movements are intact. Neck was supple. No JVD. LUNGS: Good air entry. No wheezes or rales. HEART: S1 and S2. Regular rhythm. No gallops. ABDOMEN: Soft, nondistended, and nontender. Positive bowel sounds. EXTREMITIES: No cyanosis or clubbing. Multiple injection of both sites was noted in the lower extremity as well as upper extremities left hip area as endurable area with erythema. NEUROLOGIC: Cranial nerves II through XII are grossly intact. Motor strength is 5/5 in all four extremities. Assessment/Plan Assessment/Plan 1. Abscess in the right thigh area with cellulitis. 2. History of substance abuse with intravenous drug abuse. 3. Anemia. 4. Urinary tract infection. PLAN: in medical/surgical. Dr. Eda Rankin from ID and Dr. Luna from surgery Abx: vancomycin IV Surgical evaluation for incision and drainage and debridement of the wound. Pain medication. monitor laboratory in the morning. Code status is Full Code. discuss with over the phone Osman Ortiz MD Dec 01, 2016 13:13
[2016-12-01] MEDS ORDERED: HYDROmorphone 1mg/ml Carpuject IVP ONE (15:00)
--- NOTE | 2016-12-01 15:27 | Consultation ---
History of Present Illness General Date patient seen: Nov 30, 2016 Chief Complaint: Skin Rash/Abscess Referring physician: dr Ortiz Reason for Consultation: inpatient management Present Illness HPI 51-year-old female with a longstanding history of IV drug abuse including heroine as well as multiple polysubstance abuse and history of MRSA infection, who presented to the emergency department last night with a chief complaint of pain. the pt was irritable mood , poor energy, anxiety and poor insight. the pt was reluctant to speak with me. the pt stated that she would only take Klonopin and Adderall. the pt gets medications from her primary doctor. the pt doesn't endorse si/hi. Allergies: Coded Allergies: CLONIDINE (Verified Allergy, Mild, 02/10/09) PENICILLINS (Unverified Allergy, Unknown, 12/25/15) Medication History Scheduled Dextroamphetamine/Amphetamine (Adderall 20 mg Tablet), 20 MG ORAL DAILY, ( Reported) Trimethoprim/Sulfamethoxazole 160/800* (Bactrim Ds Tablet*), 1 TAB ORAL Q12H Patient History History Provided By: Patient, Medical Record, PMD Healthcare decision maker Resuscitation status Full Code Advanced Directive on File Past Medical/Surgical History Past Medical/Surgical History: (1) Pain (2) Sepsis affecting skin (3) Abscess (4) Leukocytosis (5) abcess (6) Abrasion or friction burn of hand with infection (7) Abscess of left buttock (8) Abscess of right buttock (9) Cellulitis of chest wall (10) Anemia (11) Sepsis (12) Abscess of multiple sites (13) Opiate dependence (14) UTI (urinary tract infection) (15) Amphetamine abuse (16) Cellulitis of left buttock Review of Systems Constitutional: Reports: weakness Psychiatric: Reports: anxiety, depressed feelings, emotional problems, prior hx Physical Exam General Appearance: no apparent distress, alert, thin Neurologic: alert, oriented x 3, responsive, depressed affect Last 24 Hour Vital Signs Date Time Temp Pulse Resp B/P Pulse Ox O2 Delivery O2 Flow Rate FiO2 12/01/16 08:09 59 18 Room Air 12/01/16 08:00 97.7 56 20 152/97 99 Room Air 12/01/16 04:00 148/73 12/01/16 00:00 97.9 79 18 153/95 99 Room Air 11/30/16 20:21 97.3 11/30/16 20:05 70 20 Room Air 11/30/16 20:00 97.3 69 18 148/86 100 Room Air 11/30/16 16:00 97.8 68 20 143/83 100 Room Air Intake and Output 11/30/16 12/01/16 19:00 07:00 Intake Total 360 ml Balance 360 ml Intake Oral 360 ml # Voids 2 2 # Bowel Movements 3 Height (Feet): 5 Height (Inches): 11.00 Weight (Pounds): 130 Medications Current Medications Medications (Trade) Dose Ordered Sig/Gildardo Route PRN Reason Start Time Stop Time Status Last Admin Dose Admin Acetaminophen (Tylenol) 650 mg Q4H PRN ORAL fever 11/29/16 23:00 12/29/16 22:59 11/29/16 23:14 Albuterol/ Ipratropium (DuoNeb 0.5-3(2.5)mg/3ml) 3 ml Q4H PRN HHN Shortness of Breath 11/29/16 23:00 12/04/16 22:59 Dextrose (Dextrose 50%) STAT PRN IV Hypoglycemia 11/29/16 23:00 12/29/16 22:59 Heparin Sodium (Porcine) 5000 units 5,000 units EVERY 12 HOURS SUBQ 11/30/16 09:00 12/30/16 08:59 Hydralazine HCl (Apresoline) 10 mg Q6H PRN ORAL SBP > 160 11/30/16 19:15 12/30/16 19:14 Hydromorphone HCl (Dilaudid) 1 mg Q4H PRN IVP For Pain 11/30/16 07:00 12/07/16 06:59 12/01/16 12:37 Nitroglycerin (Ntg) 0.4 mg Every 5 Minutes PRN SL Prn Chest Pain 11/29/16 23:00 12/29/16 22:59 Ondansetron HCl (Zofran) 4 mg Q4H PRN IVP Nausea & Vomiting 11/30/16 07:00 12/30/16 06:59 12/01/16 03:53 Polyethylene Glycol (Miralax) 17 gm DAILYPRN PRN ORAL Constipation 11/29/16 23:00 12/29/16 22:59 Temazepam (Restoril) 15 mg HSPRN PRN ORAL Insomnia 11/29/16 23:00 12/06/16 22:59 Vancomycin HCl (Vanco rx to dose) 1 ea DAILY PRN MISC PER PROTOCOL 11/29/16 23:15 12/29/16 23:14 Vancomycin HCl/ Dextrose (Vancomycin/D5W) 275 ml @ 183.3 mls/ hr Q12H IVPB 11/30/16 09:00 12/05/16 08:59 12/01/16 12:38 Assessment/Plan Status: stable Assessment/Plan Polysubstance substance use disorder. -the pt is currently receiving iv Dilaudid. Recommend change it to long acting oral opioids -the pt only would take klonopin and this md don't recommend benzos. Abel Medrano M.D. Dec 01, 2016 15:27
[2016-12-01 20:00] VITALS: BP 130/58
--- NOTE | 2016-12-01 22:00 | Progress Note ---
SUBJECTIVE: The patient was found in bed, resting, continued to be demanding, receiving IV Dilaudid. She has poor insight and judgment into her mental condition. She is irritable. MENTAL STATUS EXAMINATION: The patient is alert and oriented x3. Her mood is irritable. Affect is constricted, congruent with mood. Thought process is concrete. Thought content, no suicidal or homicidal ideation. Cognition is intact. Insight and judgment is impaired. ASSESSMENT: 1. Polysubstance dependence including intravenous use drugs. 2. Abscess in the right thigh area with cellulitis. 3. Urinary tract infection. PLAN: 1. The patient will be continued on current care, which is antibiotics. The patient is reluctant to receive any other psychotropic medications besides benzodiazepine. 2. We would recommend inpatient drug rehabilitation. 3. We will continue to follow and encourage her to take medications. Abel Medrano M.D. DR: Tamera JOB#: [id number] CC:
[2016-12-02] VITALS: BP 142/77
[2016-12-02] MEDS: HYDROmorphone 1mg/ml Carpuject IVP PRN ×6 (02:55→23:18)
[2016-12-02] MEDS: Vancomycin 1 GM in D5W 275 ML IVPB SCH ×2 (08:43→21:12)
[2016-12-02] MEDS: Heparin 5000 units/ml inj SUBQ SCH ×2 (08:44→21:06)
--- NOTE | 2016-12-02 10:47 | Diagnostic Imaging Report ---
Indication: Bilateral hip pain and swelling Technique: CT pelvis was performed utilizing automated exposure control with intravenous contrast material. Axial and coronal images were generated. CT dose: Total DLP 395 mGycm; CTDI vol 11.7 mGy Comparison: None Findings: There is a diffuse subcutaneous reticulation of the bilateral hips and partially visualized thighs. A few small foci of soft tissue gas are seen within the left hip subcutaneous soft tissues series 2 image 58. There is no gross CT evident drainable fluid collection. There is no acute fracture or dislocation. Degenerative changes of the partially visualized lumbar spine are seen with severe disc space narrowing and vacuum phenomenon of the L4/L5 and L5/S1 levels. Prominent but otherwise nonspecific bilateral inguinal lymph nodes are seen measuring up to 2.8 cm in long axis on the right. Bladder is grossly unremarkable. There is trace edema or fluid in the pelvic cul-de-sac. Impression: Diffuse subcutaneous reticulation of the bilateral hips and thighs compatible with reported history of cellulitis. Few tiny foci of subcutaneous gas within the left hip posterolateral soft tissues series 2 image 58. Clinical correlation recommended. No CT evident drainable abscess. Prominent but otherwise nonspecific bilateral inguinal nodes. Clinical correlation recommended. No acute osseous abnormality. Other findings as above. The CT scanner at [facility] is accredited by the [employer] and the scans are performed using protocols designed to limit radiation exposure to as low as reasonably achievable to attain images of sufficient resolution adequate for diagnostic evaluation.
--- NOTE | 2016-12-02 11:33 | Pulmonology Progress Note ---
Assessment/Plan Assessment/Plan ASSESSMENT cellulitis Left buttock/hip possible bilateral hip abscess anemia UTI with E coli ESBL Polysubstance abuse ( IV drug abuse, amphetamine) hyponatremia cachexia possible severe protein calorie malnutrition HTN PLAN OF CARE [facility] floor abx fup with cx urine cx + E coli ESBL, blood cx preliminary negative, wound cx+ Staph aureus ID follows CT hip with Diffuse subcutaneous reticulation of the bilateral hips and thighs compatible with reported history of cellulitis. Few tiny foci of subcutaneous gas within the left hip posterolateral soft tissues. No CT evident drainable abscess. 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 SS consult for placement case discussed and evaluated by supervising physician Subjective Allergies: Coded Allergies: CLONIDINE (Verified Allergy, Mild, 02/10/09) PENICILLINS (Unverified Allergy, Unknown, 12/25/15) Subjective no fever declining labs Objective Last 24 Hour Vital Signs Date Time Temp Pulse Resp B/P Pulse Ox O2 Delivery O2 Flow Rate FiO2 12/02/16 00:00 97.7 83 20 142/77 98 Room Air 12/01/16 21:14 92 14 Room Air 21 12/01/16 20:00 97.9 93 20 130/58 98 Room Air Intake and Output 12/01/16 12/02/16 19:00 07:00 Intake Total 1540 ml 275.0 ml Balance 1540 ml 275.0 ml Intake Oral 1540 ml IV Total 275.0 ml # Voids 5 Objective General Appearance: no apparent distress, cachetic, other - awake, alert, chronically ill looking middle age female HEENT: normocephalic, atraumatic, anicteric, mucous membranes moist, PERRL Neck: non-tender, supple, normal inspection Respiratory/Chest: lungs clear, no respiratory distress, no accessory muscle use Cardiovascular/Chest: no JVD Abdomen: normal bowel sounds, non tender, soft Extremities: normal range of motion, non-tender, no calf tenderness, normal capillary refill, no edema Skin Exam: warm/dry, other - multiple injection sites with erythema, bilateral hip area with induration and erythema Neurologic: no motor/sensory deficits, alert, oriented x 3 Musculoskeletal: normal muscle bulk Microbiology Date/Time Source Procedure Growth Status 11/29/16 21:30 Blood Blood Culture - Preliminary NO GROWTH AFTER 48 HOURS Resulted 11/29/16 21:25 Blood Blood Culture - Preliminary NO GROWTH AFTER 48 HOURS Resulted 11/30/16 01:30 Wound Gram Stain - Final Resulted 11/30/16 01:30 Wound Culture - Preliminary Staphylococcus Aureus Resulted 11/29/16 22:00 Urine,Clean Catch Urine Culture - Final Escherichia Coli - Esbl Complete Current Medications Medications (Trade) Dose Ordered Sig/Gildardo Route PRN Reason Start Time Stop Time Status Last Admin Dose Admin Acetaminophen (Tylenol) 650 mg Q4H PRN ORAL fever 11/29/16 23:00 12/29/16 22:59 11/29/16 23:14 Albuterol/ Ipratropium (DuoNeb 0.5-3(2.5)mg/3ml) 3 ml Q4H PRN HHN Shortness of Breath 11/29/16 23:00 12/04/16 22:59 Dextrose (Dextrose 50%) STAT PRN IV Hypoglycemia 11/29/16 23:00 12/29/16 22:59 Heparin Sodium (Porcine) 5000 units 5,000 units EVERY 12 HOURS SUBQ 11/30/16 09:00 12/30/16 08:59 12/02/16 08:44 Hydralazine HCl (Apresoline) 10 mg Q6H PRN ORAL SBP > 160 11/30/16 19:15 12/30/16 19:14 Hydromorphone HCl (Dilaudid) 1 mg Q4H PRN IVP For Pain 11/30/16 07:00 12/07/16 06:59 12/02/16 10:58 Nitroglycerin (Ntg) 0.4 mg Every 5 Minutes PRN SL Prn Chest Pain 11/29/16 23:00 12/29/16 22:59 Ondansetron HCl (Zofran) 4 mg Q4H PRN IVP Nausea & Vomiting 11/30/16 07:00 12/30/16 06:59 12/01/16 03:53 Polyethylene Glycol (Miralax) 17 gm DAILYPRN PRN ORAL Constipation 11/29/16 23:00 12/29/16 22:59 Temazepam (Restoril) 15 mg HSPRN PRN ORAL Insomnia 11/29/16 23:00 12/06/16 22:59 Vancomycin HCl (Vanco rx to dose) 1 ea DAILY PRN MISC PER PROTOCOL 11/29/16 23:15 12/29/16 23:14 Vancomycin HCl/ Dextrose (Vancomycin/D5W) 275 ml @ 183.3 mls/ hr Q12H IVPB 11/30/16 09:00 12/05/16 08:59 12/02/16 08:43 David (Deisy)Flavia NP Dec 02, 2016 11:33
--- NOTE | 2016-12-02 11:51 | Internal Med Progress Note ---
Subjective Physician Name Osman Ortiz Attending Physician Osman Ortiz MD Current Medications Medications (Trade) Dose Ordered Sig/Gildardo Route PRN Reason Start Time Stop Time Status Last Admin Dose Admin Acetaminophen (Tylenol) 650 mg Q4H PRN ORAL fever 11/29/16 23:00 12/29/16 22:59 11/29/16 23:14 Albuterol/ Ipratropium (DuoNeb 0.5-3(2.5)mg/3ml) 3 ml Q4H PRN HHN Shortness of Breath 11/29/16 23:00 12/04/16 22:59 Dextrose (Dextrose 50%) STAT PRN IV Hypoglycemia 11/29/16 23:00 12/29/16 22:59 Heparin Sodium (Porcine) 5000 units 5,000 units EVERY 12 HOURS SUBQ 11/30/16 09:00 12/30/16 08:59 12/02/16 08:44 Hydralazine HCl (Apresoline) 10 mg Q6H PRN ORAL SBP > 160 11/30/16 19:15 12/30/16 19:14 Hydromorphone HCl (Dilaudid) 1 mg Q4H PRN IVP For Pain 11/30/16 07:00 12/07/16 06:59 12/02/16 10:58 Nitroglycerin (Ntg) 0.4 mg Every 5 Minutes PRN SL Prn Chest Pain 11/29/16 23:00 12/29/16 22:59 Ondansetron HCl (Zofran) 4 mg Q4H PRN IVP Nausea & Vomiting 11/30/16 07:00 12/30/16 06:59 12/01/16 03:53 Polyethylene Glycol (Miralax) 17 gm DAILYPRN PRN ORAL Constipation 11/29/16 23:00 12/29/16 22:59 Temazepam (Restoril) 15 mg HSPRN PRN ORAL Insomnia 11/29/16 23:00 12/06/16 22:59 Vancomycin HCl (Vanco rx to dose) 1 ea DAILY PRN MISC PER PROTOCOL 11/29/16 23:15 12/29/16 23:14 Vancomycin HCl/ Dextrose (Vancomycin/D5W) 275 ml @ 183.3 mls/ hr Q12H IVPB 11/30/16 09:00 12/05/16 08:59 12/02/16 08:43 Allergies: Coded Allergies: CLONIDINE (Verified Allergy, Mild, 02/10/09) PENICILLINS (Unverified Allergy, Unknown, 12/25/15) Subjective awake, alert, responsive, refused labs today Objective Last Vital Signs Date Time Temp Pulse Resp B/P Pulse Ox O2 Delivery O2 Flow Rate FiO2 12/02/16 11:28 97.7 12/02/16 00:00 83 20 142/77 98 Room Air 12/01/16 21:14 21 Microbiology Date/Time Source Procedure Growth Status 11/29/16 21:30 Blood Blood Culture - Preliminary NO GROWTH AFTER 48 HOURS Resulted 11/29/16 21:25 Blood Blood Culture - Preliminary NO GROWTH AFTER 48 HOURS Resulted 11/30/16 01:30 Wound Gram Stain - Final Resulted 11/30/16 01:30 Wound Culture - Preliminary Staphylococcus Aureus Resulted 11/29/16 22:00 Urine,Clean Catch Urine Culture - Final Escherichia Coli - Esbl Complete Intake and Output 12/01/16 12/02/16 19:00 07:00 Intake Total 1540 ml 275.0 ml Balance 1540 ml 275.0 ml Intake Oral 1540 ml IV Total 275.0 ml # Voids 5 Objective HEAD AND NECK: Pupils are reactive to light. Extraocular movements are intact. Neck was supple. No JVD. LUNGS: Good air entry. No wheezes or rales. HEART: S1 and S2. Regular rhythm. No gallops. ABDOMEN: Soft, nondistended, and nontender. Positive bowel sounds. EXTREMITIES: No cyanosis or clubbing. Multiple injection of both sites was noted in the lower extremity as well as upper extremities left hip area as endurable area with erythema. NEUROLOGIC: Cranial nerves II through XII are grossly intact. Motor strength is 5/5 in all four extremities. Assessment/Plan Assessment/Plan 1. Abscess in the right thigh area with cellulitis. 2. History of substance abuse with intravenous drug abuse. 3. Anemia. 4. E coli ESBL Urinary tract infection. PLAN: in medical/surgical. Dr. Eda Rankin from ID and Dr. Luna from surgery Abx: vancomycin IV, start Bactrim DC Surgical evaluation for incision and drainage and debridement of the wound. Pain medication. monitor laboratory in the morning. Code status is Full Code. DC home in AM CT Pelvic Diffuse subcutaneous reticulation of the bilateral hips and thighs compatible with reported history of cellulitis. Few tiny foci of subcutaneous gas within the left hip posterolateral soft tissues series 2 image 58. Clinical correlation recommended. No CT evident drainable abscess. Osman Ortiz MD Dec 02, 2016 11:51
--- NOTE | 2016-12-02 13:06 | Infectious Diseases Prog Note ---
Assessment/Plan Assessment/Plan ASSESSMENT AND PLAN: 1. staph aureus bilateral hip/leg cellulitis/wound infection, ct hips without drainable abscess, esbl e.coli uti - vancomycin and bactrim appropriate - surgery f/u, wound care - watch labs/cr - fevers and leukocytosis resolved 2. The patient has a history of anemia. 3. Pain management. 4. History of drug abuse. 5. History of smoking. 6. History of abscesses in the past and urinary tract infections. 7. History of amphetamine use. 8. Opioid dependency. 9. No history of diabetes or hypertension. 10. Allergies to clonidine and penicillin. 11. Social history is positive for smoking and drug abuse. 12. MAR was noted. 13. Case was discussed with RN. 14. Notes and records were reviewed. 15. Family history is noncontributory. 16. Case was discussed with Dr. Ortiz. 17. patient requests hiv test Subjective Constitutional: Denies: fatigue, fever Respiratory: Denies: shortness of breath Cardiovascular: Denies: chest pain Gastrointestinal/Abdominal: Denies: diarrhea, nausea, vomiting Genitourinary: Reports: other - no peraza Neurologic: Denies: headache Psychiatric: Denies: depression Skin: Denies: rash Hematologic: Denies: bleeding Musculoskeletal: Reports: pain Allergies: Coded Allergies: CLONIDINE (Verified Allergy, Mild, 02/10/09) PENICILLINS (Unverified Allergy, Unknown, 12/25/15) Objective Vital Signs Last 24 Hour Vital Signs Date Time Temp Pulse Resp B/P Pulse Ox O2 Delivery O2 Flow Rate FiO2 12/02/16 11:28 97.7 12/02/16 00:00 97.7 83 20 142/77 98 Room Air 12/01/16 21:14 92 14 Room Air 21 12/01/16 20:00 97.9 93 20 130/58 98 Room Air Height (Feet): 5 Height (Inches): 11.00 Weight (Pounds): 130 General Appearance: no acute distress HEENT: normocephalic, atraumatic, anicteric, mucous membranes moist, PERRL, EOMI, pharynx normal, supple, no JVD Respiratory/Chest: lungs clear, normal breath sounds, no respiratory distress Cardiovascular: normal rate, regular rhythm, no gallop/murmur, no JVD Abdomen: normal bowel sounds, soft, non tender, no organomegaly, non distended Genitourinary: other - no peraza Extremities: no cyanosis, other - hip and legs with cellulitis which may be less Skin: no rash Neurologic/Psychiatric: track oiler II-XII grossly normal, alert, oriented x 3, responsive Lymphatic: no neck adenopathy Musculoskeletal: no effusion Objective CT scan of the bilateral hips Impression: Diffuse subcutaneous reticulation of the bilateral hips and thighs compatible with reported history of cellulitis. Few tiny foci of subcutaneous gas within the left hip posterolateral soft tissues series 2 image 58. Clinical correlation recommended. No CT evident drainable abscess. Prominent but otherwise nonspecific bilateral inguinal nodes. Clinical correlation recommended. No acute osseous abnormality. chest x-ray negative Microbiology Date/Time Source Procedure Growth Status 11/29/16 21:30 Blood Blood Culture - Preliminary NO GROWTH AFTER 48 HOURS Resulted 11/29/16 21:25 Blood Blood Culture - Preliminary NO GROWTH AFTER 48 HOURS Resulted 11/30/16 01:30 Wound Gram Stain - Final Resulted 11/30/16 01:30 Wound Culture - Preliminary Staphylococcus Aureus Resulted 11/29/16 22:00 Urine,Clean Catch Urine Culture - Final Escherichia Coli - Esbl Complete Labs Test 11/29/16 21:30 11/29/16 22:00 White Blood Count 12.3 K/UL (4.8-10.8) Red Blood Count 3.67 M/UL (4.20-5.40) Hemoglobin 7.5 G/DL (12.0-16.0) Hematocrit 24.4 % (37.0-47.0) Mean Corpuscular Volume 66 FL (80-99) Mean Corpuscular Hemoglobin 20.5 PG (27.0-31.0) Mean Corpuscular Hemoglobin Concent 30.9 G/DL (32.0-36.0) Red Cell Distribution Width 16.3 % (11.6-14.8) Platelet Count 530 K/UL (150-450) Mean Platelet Volume 4.6 FL (6.5-10.1) Neutrophils (%) (Auto) % (45.0-75.0) Lymphocytes (%) (Auto) % (20.0-45.0) Monocytes (%) (Auto) % (1.0-10.0) Eosinophils (%) (Auto) % (0.0-3.0) Basophils (%) (Auto) % (0.0-2.0) Differential Total Cells Counted 100 Neutrophils % (Manual) 76 % (45-75) Lymphocytes % (Manual) 16 % (20-45) Monocytes % (Manual) 3 % (1-10) Eosinophils % (Manual) 3 % (0-3) Basophils % (Manual) 0 % (0-2) Band Neutrophils 2 % (0-8) Platelet Estimate Increased Platelet Morphology Normal Polychromasia 1+ Hypochromasia 2+ Anisocytosis 1+ Microcytosis 2+ Erythrocyte Sedimentation Rate 115 MM/HR (0-20) Prothrombin Time 10.6 SEC (9.30-11.50) Prothromb Time International Ratio 1.0 (0.9-1.1) Activated Partial Thromboplast Time 31 SEC (23-33) Sodium Level 133 mEQ/L (135-145) Potassium Level 3.7 mEQ/L (3.4-4.9) Chloride Level 94 mEQ/L (98-107) Carbon Dioxide Level 27 mEQ/L (20-30) Anion Gap 12 (5-15) Blood Urea Nitrogen 19 mg/dL (7-23) Creatinine 0.7 mg/dL (0.5-0.9) Estimat Glomerular Filtration Rate > 60 mL/min (>60) Glucose Level 92 mg/dL (74-106) Lactic Acid Level 1.70 mmol/L (0.66-2.22) Calcium Level 8.6 mg/dL (8.6-10.2) Total Bilirubin 0.2 mg/dL (0.0-1.2) Aspartate Amino Transf (AST/SGOT) 12 U/L (5-40) Alanine Aminotransferase (ALT/SGPT) 6 U/L (3-33) Alkaline Phosphatase 75 U/L (35-104) Total Creatine Kinase 57 U/L (26-140) Troponin I < 0.30 ng/mL (<=0.30) Total Protein 9.0 g/dL (6.6-8.7) Albumin 3.4 g/dL (3.5-5.2) Globulin 5.6 g/dL Albumin/Globulin Ratio 0.6 (1.0-2.7) Urine Color Pale yellow Urine Appearance Slightly cloudy Urine pH 7 (4.5-8.0) Urine Specific [place] 1.030 (1.005-1.035) Urine Protein Negative (NEGATIVE) Urine Glucose (UA) Negative (NEGATIVE) Urine Ketones Negative (NEGATIVE) Urine Occult Blood 2+ (NEGATIVE) Urine Nitrite Positive (NEGATIVE) Urine Bilirubin Negative (NEGATIVE) Urine Urobilinogen 1 MG/DL (0.0-1.0) Urine Leukocyte Esterase 1+ (NEGATIVE) Urine RBC 2-4 /HPF (0 - 2) Urine WBC 5-10 /HPF (0 - 2) Urine Squamous Epithelial Cells Few /LPF (NONE/OCC) Urine Bacteria Many /HPF (NONE) Urine Opiates Screen Positive (NEGATIVE) Urine Barbiturates Screen Negative (NEGATIVE) Phencyclidine (PCP) Screen Negative (NEGATIVE) Urine Amphetamines Screen Positive (NEGATIVE) Urine Benzodiazepines Screen Negative (NEGATIVE) Urine Cocaine Screen Negative (NEGATIVE) Urine Marijuana (THC) Screen Negative (NEGATIVE) Current Medications Medications (Trade) Dose Ordered Sig/Gildardo Route PRN Reason Start Time Stop Time Status Last Admin Dose Admin Acetaminophen (Tylenol) 650 mg Q4H PRN ORAL fever 11/29/16 23:00 12/29/16 22:59 11/29/16 23:14 Albuterol/ Ipratropium (DuoNeb 0.5-3(2.5)mg/3ml) 3 ml Q4H PRN HHN Shortness of Breath 11/29/16 23:00 12/04/16 22:59 Dextrose (Dextrose 50%) STAT PRN IV Hypoglycemia 11/29/16 23:00 12/29/16 22:59 Heparin Sodium (Porcine) 5000 units 5,000 units EVERY 12 HOURS SUBQ 11/30/16 09:00 12/30/16 08:59 12/02/16 08:44 Hydralazine HCl (Apresoline) 10 mg Q6H PRN ORAL SBP > 160 11/30/16 19:15 12/30/16 19:14 Hydromorphone HCl (Dilaudid) 1 mg Q4H PRN IVP For Pain 11/30/16 07:00 12/07/16 06:59 12/02/16 10:58 Nitroglycerin (Ntg) 0.4 mg Every 5 Minutes PRN SL Prn Chest Pain 11/29/16 23:00 12/29/16 22:59 Ondansetron HCl (Zofran) 4 mg Q4H PRN IVP Nausea & Vomiting 11/30/16 07:00 12/30/16 06:59 12/01/16 03:53 Polyethylene Glycol (Miralax) 17 gm DAILYPRN PRN ORAL Constipation 11/29/16 23:00 12/29/16 22:59 Temazepam (Restoril) 15 mg HSPRN PRN ORAL Insomnia 11/29/16 23:00 12/06/16 22:59 Trimethoprim/ Sulfamethoxazole (Bactrim-DS) 1 ea TWICE A DAY ORAL 12/02/16 18:00 12/09/16 17:59 Vancomycin HCl (Vanco rx to dose) 1 ea DAILY PRN MISC PER PROTOCOL 11/29/16 23:15 12/29/16 23:14 Vancomycin HCl/ Dextrose (Vancomycin/D5W) 275 ml @ 183.3 mls/ hr Q12H IVPB 11/30/16 09:00 12/05/16 08:59 12/02/16 08:43 SAM ALEJANDRO Dec 02, 2016 13:06
[2016-12-02 13:43] LABS: OTHERS PATHOLOGIST COMMENT
--- NOTE | 2016-12-02 17:15 | Cardiology Report ---
APPROVED REPORT EKG Measurement Heart [id number] Sinus tachycardia Voltage for LVH Abnormal ECG
--- NOTE | 2016-12-02 18:46 | General Progress Note ---
Assessment/Plan Status: stable Assessment/Plan ASSESSMENT: 1. Polysubstance dependence including intravenous use drugs. 2. Abscess in the right thigh area with cellulitis. 3. Urinary tract infection. PLAN: 1. The patient will be continued on current care, which is antibiotics. The patient is reluctant to receive any other psychotropic medications besides benzodiazepine. 2. We would recommend inpatient drug rehabilitation. 3. We will continue to follow and encourage her to take medications Subjective Constitutional: Reports: malaise, weakness Neurologic/Psychiatric: Reports: anxiety, depressed, emotional problems Allergies: Coded Allergies: CLONIDINE (Verified Allergy, Mild, 02/10/09) PENICILLINS (Unverified Allergy, Unknown, 12/25/15) Subjective The patient was found in bed, resting, continued to be demanding, receiving IV Dilaudid. She has poor insight and judgment into her mental condition. She is irritable. Objective Last 24 Hour Vital Signs Date Time Temp Pulse Resp B/P Pulse Ox O2 Delivery O2 Flow Rate FiO2 12/02/16 15:35 97.7 12/02/16 13:59 62 16 Room Air 12/02/16 00:00 97.7 83 20 142/77 98 Room Air 12/01/16 21:14 92 14 Room Air 21 12/01/16 20:00 97.9 93 20 130/58 98 Room Air Intake and Output 12/01/16 12/02/16 19:00 07:00 Intake Total 1540 ml 275.0 ml Balance 1540 ml 275.0 ml Intake Oral 1540 ml IV Total 275.0 ml # Voids 5 Laboratory Tests 12/02/16 16:10: Stool Occult Blood [Pending] Height (Feet): 5 Height (Inches): 11.00 Weight (Pounds): 130 General Appearance: no apparent distress, alert, thin Neurologic: alert, oriented x 3, responsive, depressed affect Objective The patient is alert and oriented x3. Her mood is irritable. Affect is constricted, congruent with mood. Thought process is concrete. Thought content, no suicidal or homicidal ideation. Cognition is intact. Insight and judgment is impaired. Aebl Medrano M.D. Dec 02, 2016 18:46
[2016-12-02] MEDS: Bactrim DS (160mg/800mg) tab ORAL SCH (19:06)
[2016-12-03] MEDS: HYDROmorphone 1mg/ml Carpuject IVP PRN ×5 (03:23→20:36)
[2016-12-03 08:00] VITALS: BP 131/85
[2016-12-03] MEDS: Heparin 5000 units/ml inj SUBQ SCH ×2 (09:00→20:39)
[2016-12-03] MEDS: Bactrim DS (160mg/800mg) tab ORAL SCH ×2 (10:06→17:33)
[2016-12-03] MEDS: Vancomycin 1 GM in D5W 275 ML IVPB SCH (10:07)
--- NOTE | 2016-12-03 11:14 | Internal Med Progress Note ---
Subjective Date of Service: Dec 03, 2016 Physician Name Gigi Cruz Attending Physician Osman Ortiz MD Current Medications Medications (Trade) Dose Ordered Sig/Gildardo Route PRN Reason Start Time Stop Time Status Last Admin Dose Admin Acetaminophen (Tylenol) 650 mg Q4H PRN ORAL fever 11/29/16 23:00 12/29/16 22:59 11/29/16 23:14 Albuterol/ Ipratropium (DuoNeb 0.5-3(2.5)mg/3ml) 3 ml Q4H PRN HHN Shortness of Breath 11/29/16 23:00 12/04/16 22:59 Dextrose (Dextrose 50%) STAT PRN IV Hypoglycemia 11/29/16 23:00 12/29/16 22:59 Heparin Sodium (Porcine) 5000 units 5,000 units EVERY 12 HOURS SUBQ 11/30/16 09:00 12/30/16 08:59 12/02/16 21:06 Hydralazine HCl (Apresoline) 10 mg Q6H PRN ORAL SBP > 160 11/30/16 19:15 12/30/16 19:14 Hydromorphone HCl (Dilaudid) 1 mg Q4H PRN IVP For Pain 11/30/16 07:00 12/07/16 06:59 12/03/16 07:42 Nitroglycerin (Ntg) 0.4 mg Every 5 Minutes PRN SL Prn Chest Pain 11/29/16 23:00 12/29/16 22:59 Ondansetron HCl (Zofran) 4 mg Q4H PRN IVP Nausea & Vomiting 11/30/16 07:00 12/30/16 06:59 12/02/16 19:07 Polyethylene Glycol (Miralax) 17 gm DAILYPRN PRN ORAL Constipation 11/29/16 23:00 12/29/16 22:59 Temazepam (Restoril) 15 mg HSPRN PRN ORAL Insomnia 11/29/16 23:00 12/06/16 22:59 Trimethoprim/ Sulfamethoxazole (Bactrim-DS) 1 ea TWICE A DAY ORAL 12/02/16 18:00 12/09/16 17:59 12/03/16 10:06 Vancomycin HCl (Vanco rx to dose) 1 ea DAILY PRN MISC PER PROTOCOL 11/29/16 23:15 12/29/16 23:14 Vancomycin HCl/ Dextrose (Vancomycin/D5W) 275 ml @ 183.3 mls/ hr Q12H IVPB 11/30/16 09:00 12/05/16 08:59 12/03/16 10:07 Allergies: Coded Allergies: CLONIDINE (Verified Allergy, Mild, 02/10/09) PENICILLINS (Unverified Allergy, Unknown, 12/25/15) ROS Limited/Unobtainable: No Constitutional: Reports: no symptoms HEENT: Reports: no symptoms Cardiovascular: Reports: no symptoms Respiratory: Reports: no symptoms Gastrointestinal/Abdominal: Reports: no symptoms Genitourinary: Reports: no symptoms Neurologic/Psychiatric: Reports: no symptoms Subjective 51 YO F admitted with abscess right thigh and bilat lower ext cellulitis. Now UTI with ESBL E. Coli. Cover for Int Med-Dr Ortiz.. Irritable; C/O pain. Objective Last Vital Signs Date Time Temp Pulse Resp B/P Pulse Ox O2 Delivery O2 Flow Rate FiO2 12/03/16 10:09 16 Room Air 12/03/16 08:12 97.7 12/03/16 08:00 85 131/85 98 12/01/16 21:14 21 General Appearance: alert, mild distress, thin, agitated EENT: PERRL/EOMI, normal ENT inspection Neck: non-tender, supple, normal inspection Cardiovascular: normal peripheral pulses, normal rate, regular rhythm, no gallop/murmur, no JVD Respiratory/Chest: chest wall non-tender, lungs clear, normal breath sounds, no respiratory distress, no accessory muscle use Abdomen: normal bowel sounds, non tender, soft, no organomegaly, no mass Extremities: normal range of motion 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 Cont abx per ID (2) E coli infection (3) ESBL (extended spectrum beta-lactamase) producing bacteria infection (4) Staph aureus infection (5) Streptococcus infection, group A (6) UTI (urinary tract infection) Assessment & Plan: ESBL E. Coli. Cont bactrim per ID (7) Polysubstance abuse Assessment & Plan: IV. See psych note. Status: progressing Assessment/Plan Discharge planning. GIGI CRUZ Dec 03, 2016 11:14
[2016-12-03] MEDS ORDERED: BACTRIM-DS1 EA ORAL (15:52)
[2016-12-03 16:00] VITALS: BP 126/65
--- NOTE | 2016-12-03 16:03 | Pulmonology Progress Note ---
Assessment/Plan Problems: (1) Polysubstance abuse (2) ESBL (extended spectrum beta-lactamase) producing bacteria infection (3) Cellulitis and abscess of leg Assessment/Plan improving ID cleared the pt for discharge with oral abx prescription given Subjective ROS Limited/Unobtainable: No Allergies: Coded Allergies: CLONIDINE (Verified Allergy, Mild, 02/10/09) PENICILLINS (Unverified Allergy, Unknown, 12/25/15) Objective Last 24 Hour Vital Signs Date Time Temp Pulse Resp B/P Pulse Ox O2 Delivery O2 Flow Rate FiO2 12/03/16 12:27 97.7 12/03/16 10:09 16 Room Air 12/03/16 08:12 97.7 12/03/16 08:00 97.1 85 15 131/85 98 Room Air 12/02/16 19:10 65 16 Room Air Intake and Output 12/02/16 12/03/16 19:00 07:00 Intake Total 2875.0 ml 846.6 ml Balance 2875.0 ml 846.6 ml Intake Oral 2600 ml 480 ml IV Total 275.0 ml 366.6 ml # Voids 8 3 # Bowel Movements 1 General Appearance: WD/WN HEENT: normocephalic, anicteric Respiratory/Chest: chest wall non-tender, normal breath sounds Breasts: no masses Cardiovascular: normal rate Abdomen: normal bowel sounds, no organomegaly Extremities: no cyanosis Skin: no rash, no lesions Laboratory Tests 12/02/16 16:10: Stool Occult Blood Negative Current Medications Medications (Trade) Dose Ordered Sig/Gildardo Route PRN Reason Start Time Stop Time Status Last Admin Dose Admin Acetaminophen (Tylenol) 650 mg Q4H PRN ORAL fever 11/29/16 23:00 12/29/16 22:59 11/29/16 23:14 Albuterol/ Ipratropium (DuoNeb 0.5-3(2.5)mg/3ml) 3 ml Q4H PRN HHN Shortness of Breath 11/29/16 23:00 12/04/16 22:59 Dextrose (Dextrose 50%) STAT PRN IV Hypoglycemia 11/29/16 23:00 12/29/16 22:59 Divalproex Sodium (Depakote ER) 500 mg BEDTIME ORAL 12/03/16 21:00 9/20/17 20:59 Heparin Sodium (Porcine) (Heparin 5000 units/ml) 5,000 units EVERY 12 HOURS SUBQ 11/30/16 09:00 12/30/16 08:59 12/02/16 21:06 Hydralazine HCl (Apresoline) 10 mg Q6H PRN ORAL SBP > 160 11/30/16 19:15 12/30/16 19:14 Hydromorphone HCl (Dilaudid) 2 mg Q4H PRN IVP For Pain 12/03/16 11:30 12/10/16 11:29 12/03/16 11:57 Nitroglycerin (Ntg) 0.4 mg Every 5 Minutes PRN SL Prn Chest Pain 11/29/16 23:00 12/29/16 22:59 Ondansetron HCl (Zofran) 4 mg Q4H PRN IVP Nausea & Vomiting 11/30/16 07:00 12/30/16 06:59 12/02/16 19:07 Polyethylene Glycol (Miralax) 17 gm DAILYPRN PRN ORAL Constipation 11/29/16 23:00 12/29/16 22:59 Temazepam (Restoril) 15 mg HSPRN PRN ORAL Insomnia 11/29/16 23:00 12/06/16 22:59 Trimethoprim/ Sulfamethoxazole (Bactrim-DS) 1 ea TWICE A DAY ORAL 12/02/16 18:00 12/09/16 17:59 12/03/16 10:06 FARHAT BASS Dec 03, 2016 16:03
[2016-12-03 16:54] LABS: BASOPHILS % (AUTO) 1.4 % (0.0-2.0); EOSINOPHILS % (AUTO) 2.6 % (0.0-3.0); LYMPHOCYTES % (AUTO) 36.2 % (20.0-45.0); MEAN CORPUSCULAR HEMOGLOBIN 20.4 PG (27.0-31.0); MEAN CORPUSCULAR HGB CONC 30.8 G/DL (32.0-36.0); MEAN CORPUSCULAR VOLUME 66 FL (80-99); MEAN PLATELET VOLUME 4.6 FL (6.5-10.1); MONOCYTES % (AUTO) 7.5 % (1.0-10.0); NEUTROPHILS % (AUTO) 52.3 % (45.0-75.0); PLATELET COUNT 673 K/UL (150-450); RED BLOOD COUNT 4.63 M/UL (4.20-5.40); RED CELL DISTRIBUTION WIDTH 16.1 % (11.6-14.8); WHITE BLOOD COUNT 6.7 K/UL (4.8-10.8)
[2016-12-03 17:09] LABS: ALANINE AMINOTRANSFERASE 7 U/L (3-33); ALBUMIN/GLOBULIN RATIO 0.4 (1.0-2.7); ANION GAP 11 (5-15); ASPARTATE AMINO TRANSFERASE 10 U/L (5-40); CARBON DIOXIDE 28 mEQ/L (20-30); CHLORIDE 95 mEQ/L (98-107); CREATININE 0.9 mg/dL (0.5-0.9); GLOMERULAR FILTRATION RATE > 60 mL/min (>60); HEMOLYSIS 1; POTASSIUM 4.1 mEQ/L (3.4-4.9); SODIUM 134 mEQ/L (135-145); TOTAL PROTEIN 9.2 g/dL (6.6-8.7)
[2016-12-03 20:00] VITALS: BP 133/79
[2016-12-03] MEDS: Depakote ER 500mg tab ORAL SCH (20:38)
[2016-12-03] MEDS: Vancomycin 1gm in D5W 275ml IVPB SCH (20:56)
--- NOTE | 2016-12-03 22:00 | Progress Note ---
DATE: 12/03/2016 SUBJECTIVE: The patient continues to have med-seeking behavior. She was angry and irritable after Dilaudid was decreased. She continues to be loud, yelling, and being hostile towards the nursing staff. She has poor insight and judgment into her mental condition and has no motivation to stop medications. I do not believe the patient has pain since she is refusing the long-acting oral opiate pain medication. I believe the patient would like to get euphoria from the IV Dilaudid. She does not appear to be in pain. She was walking with no acute distress. She was more concerned about coping with her emotional instability. MENTAL STATUS EXAMINATION: The patient is alert and oriented to time, self, place, and situation she is in. Uncooperative with examination. Her mood is irritable to agitated. Affect is blunted, congruent with mood and appropriate. Thought process is perseverated that she wants to get IV Dilaudid more dosage. Thought content, no suicidal or homicidal ideations. ASSESSMENT: Polysubstance dependence. PLAN: 1. I would recommend long-acting opiate pain medication like methadone. 2. I would recommend discontinuing Dilaudid and replacing it with a little longer-acting opiate pain medication. The patient would only take anti-anxiety medications like benzodiazepines. 3. We will start the patient on Depakote ER 500 mg to reduce the irritability and agitation and mood liability. We will continue to follow and readjust the medications. Abel Medrano M.D. DR: PRANAV JOB#: [id number] CC:
[2016-12-04] VITALS (7 sets, daily range): BP systolic 96–121; BP diastolic 56–75
[2016-12-04] MEDS: HYDROmorphone 1mg/ml Carpuject IVP PRN ×3 (00:48→09:06)
[2016-12-04 07:56] LABS: BASOPHILS % (AUTO) 0.7 % (0.0-2.0); EOSINOPHILS % (AUTO) 4.6 % (0.0-3.0); LYMPHOCYTES % (AUTO) 40.5 % (20.0-45.0); MEAN CORPUSCULAR HEMOGLOBIN 19.5 PG (27.0-31.0); MEAN CORPUSCULAR HGB CONC 29.3 G/DL (32.0-36.0); MEAN CORPUSCULAR VOLUME 67 FL (80-99); MEAN PLATELET VOLUME 4.5 FL (6.5-10.1); MONOCYTES % (AUTO) 10.2 % (1.0-10.0); PLATELET COUNT 676 K/UL (150-450); RED BLOOD COUNT 4.97 M/UL (4.20-5.40); RED CELL DISTRIBUTION WIDTH 16.6 % (11.6-14.8); WHITE BLOOD COUNT 6.7 K/UL (4.8-10.8)
[2016-12-04 08:25] LABS: ANION GAP 9 (5-15); CALCIUM 9.2 mg/dL (8.6-10.2); CARBON DIOXIDE 28 mEQ/L (20-30); CHLORIDE 98 mEQ/L (98-107); CREATININE 0.7 mg/dL (0.5-0.9); GLOMERULAR FILTRATION RATE > 60 mL/min (>60); HEMOLYSIS 0; SODIUM 135 mEQ/L (135-145)
[2016-12-04] MEDS: Bactrim DS (160mg/800mg) tab ORAL SCH ×2 (09:06→18:17)
[2016-12-04] MEDS: Vancomycin 1gm in D5W 275ml IVPB SCH (09:06)
[2016-12-04] MEDS: Heparin 5000 units/ml inj SUBQ SCH ×2 (09:11→21:05)
--- NOTE | 2016-12-04 12:58 | Infectious Diseases Prog Note ---
Assessment/Plan Assessment/Plan ASSESSMENT AND PLAN: 1. staph aureus/group A strep bilateral hip/leg cellulitis/wound infection, ct hips without drainable abscess, esbl e.coli uti - vancomycin and bactrim - slowly improving - surgery f/u, wound care - watch labs/cr - fevers and leukocytosis resolved 2. The patient has a history of anemia. 3. Pain management. 4. History of drug abuse. 5. History of smoking. 6. History of abscesses in the past and urinary tract infections. 7. History of amphetamine use. 8. Opioid dependency. 9. No history of diabetes or hypertension. 10. Allergies to clonidine and penicillin. 11. Social history is positive for smoking and drug abuse. 12. MAR was noted. 13. Case was discussed with RN. 14. Notes and records were reviewed. 15. Family history is noncontributory. 16. Case was discussed with Dr. Moss 17. hiv test negative Subjective Constitutional: Denies: fever HEENT: Denies: congestion Respiratory: Denies: shortness of breath Cardiovascular: Denies: chest pain Gastrointestinal/Abdominal: Denies: diarrhea, nausea, vomiting Genitourinary: Reports: other - no peraza Neurologic: Denies: headache Psychiatric: Denies: depression Skin: Denies: rash Hematologic: Denies: bleeding Musculoskeletal: Reports: pain - less pain Allergies: Coded Allergies: CLONIDINE (Verified Allergy, Mild, 02/10/09) PENICILLINS (Unverified Allergy, Unknown, 12/25/15) Objective Vital Signs Last 24 Hour Vital Signs Date Time Temp Pulse Resp B/P Pulse Ox O2 Delivery O2 Flow Rate FiO2 12/04/16 08:10 70 18 Room Air 12/04/16 08:00 96.8 18 96/59 100 Room Air 12/04/16 04:00 97.9 89 20 121/71 97 Room Air 12/04/16 03:24 73 15 Room Air 12/04/16 00:00 97.2 110 20 103/75 100 Room Air 12/03/16 20:00 98.2 94 20 133/79 98 Room Air 12/03/16 16:39 97.7 12/03/16 16:00 97.0 110 18 126/65 99 Room Air Height (Feet): 5 Height (Inches): 11.00 Weight (Pounds): 130 General Appearance: no acute distress HEENT: normocephalic, atraumatic, anicteric, mucous membranes moist, PERRL, EOMI, pharynx normal, supple, no JVD Respiratory/Chest: lungs clear, normal breath sounds, no respiratory distress, no accessory muscle use Cardiovascular: normal rate, regular rhythm, no gallop/murmur, no JVD Abdomen: normal bowel sounds, soft, non tender, no organomegaly, non distended Genitourinary: other - no peraza Extremities: no cyanosis Skin: no rash, other - leg and hip cellulitis less 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 Few tiny foci of subcutaneous gas within the left hip posterolateral soft tissues series 2 image 58. Clinical correlation recommended. No CT evident drainable abscess. Prominent but otherwise nonspecific bilateral inguinal nodes. Clinical correlation recommended. No acute osseous abnormality. chest x-ray negative Microbiology Date/Time Source Procedure Growth Status 11/29/16 21:30 Blood Blood Culture - Preliminary NO GROWTH AFTER 4 DAYS Resulted 11/30/16 01:30 Wound Gram Stain - Final Complete 11/30/16 01:30 Wound Culture - Final Staphylococcus Aureus Streptococcus Group A Complete 11/29/16 22:00 Urine,Clean Catch Urine Culture - Final Escherichia Coli - Esbl Complete Laboratory Tests Test 12/03/16 16:30 12/04/16 07:45 White Blood Count 6.7 K/UL (4.8-10.8) 6.7 K/UL (4.8-10.8) Red Blood Count 4.63 M/UL (4.20-5.40) 4.97 M/UL (4.20-5.40) Hemoglobin 9.4 G/DL (12.0-16.0) L 9.7 G/DL (12.0-16.0) L Hematocrit 30.7 % (37.0-47.0) L 33.2 % (37.0-47.0) L Mean Corpuscular Volume 66 FL (80-99) L 67 FL (80-99) L Mean Corpuscular Hemoglobin 20.4 PG (27.0-31.0) L 19.5 PG (27.0-31.0) L Mean Corpuscular Hemoglobin Concent 30.8 G/DL (32.0-36.0) L 29.3 G/DL (32.0-36.0) L Red Cell Distribution Width 16.1 % (11.6-14.8) H 16.6 % (11.6-14.8) H Platelet Count 673 K/UL (150-450) H 676 K/UL (150-450) H Mean Platelet Volume 4.6 FL (6.5-10.1) L 4.5 FL (6.5-10.1) L Neutrophils (%) (Auto) 52.3 % (45.0-75.0) 44.0 % (45.0-75.0) L Lymphocytes (%) (Auto) 36.2 % (20.0-45.0) 40.5 % (20.0-45.0) Monocytes (%) (Auto) 7.5 % (1.0-10.0) 10.2 % (1.0-10.0) H Eosinophils (%) (Auto) 2.6 % (0.0-3.0) 4.6 % (0.0-3.0) H Basophils (%) (Auto) 1.4 % (0.0-2.0) 0.7 % (0.0-2.0) Sodium Level 134 mEQ/L (135-145) L 135 mEQ/L (135-145) Potassium Level 4.1 mEQ/L (3.4-4.9) 5.0 mEQ/L (3.4-4.9) H Chloride Level 95 mEQ/L (98-107) L 98 mEQ/L (98-107) Carbon Dioxide Level 28 mEQ/L (20-30) 28 mEQ/L (20-30) Anion Gap 11 (5-15) 9 (5-15) Blood Urea Nitrogen 15 mg/dL (7-23) 16 mg/dL (7-23) Creatinine 0.9 mg/dL (0.5-0.9) 0.7 mg/dL (0.5-0.9) Estimat Glomerular Filtration Rate > 60 mL/min (>60) > 60 mL/min (>60) Glucose Level 125 mg/dL (74-106) H 108 mg/dL (74-106) H Calcium Level 9.0 mg/dL (8.6-10.2) 9.2 mg/dL (8.6-10.2) Total Bilirubin 0.3 mg/dL (0.0-1.2) Aspartate Amino Transf (AST/SGOT) 10 U/L (5-40) Alanine Aminotransferase (ALT/SGPT) 7 U/L (3-33) Alkaline Phosphatase 83 U/L (35-104) Total Protein 9.2 g/dL (6.6-8.7) H Albumin 2.9 g/dL (3.5-5.2) L Globulin 6.3 g/dL Albumin/Globulin Ratio 0.4 (1.0-2.7) L HIV (1&2) Antibody Rapid Negative (NEGATIVE) Vancomycin Level Trough 14.1 ug/mL (5.0-12.0) H Current Medications Medications (Trade) Dose Ordered Sig/Gildardo Route PRN Reason Start Time Stop Time Status Last Admin Dose Admin Acetaminophen (Tylenol) 650 mg Q4H PRN ORAL fever 11/29/16 23:00 12/29/16 22:59 11/29/16 23:14 Albuterol/ Ipratropium (DuoNeb 0.5-3(2.5)mg/3ml) 3 ml Q4H PRN HHN Shortness of Breath 11/29/16 23:00 12/04/16 22:59 Dextrose (Dextrose 50%) STAT PRN IV Hypoglycemia 11/29/16 23:00 12/29/16 22:59 Divalproex Sodium (Depakote ER) 500 mg BEDTIME ORAL 12/03/16 21:00 01/02/17 20:59 12/03/16 20:38 Heparin Sodium (Porcine) (Heparin 5000 units/ml) 5,000 units EVERY 12 HOURS SUBQ 11/30/16 09:00 12/30/16 08:59 12/04/16 09:11 Hydralazine HCl (Apresoline) 10 mg Q6H PRN ORAL SBP > 160 11/30/16 19:15 12/30/16 19:14 Hydromorphone HCl (Dilaudid) 2 mg Q4H PRN IVP For Pain 12/04/16 09:45 12/10/16 09:44 Nitroglycerin (Ntg) 0.4 mg Every 5 Minutes PRN SL Prn Chest Pain 11/29/16 23:00 12/29/16 22:59 Ondansetron HCl (Zofran) 4 mg Q4H PRN IVP Nausea & Vomiting 11/30/16 07:00 12/30/16 06:59 12/02/16 19:07 Polyethylene Glycol (Miralax) 17 gm DAILYPRN PRN ORAL Constipation 11/29/16 23:00 12/29/16 22:59 Temazepam (Restoril) 15 mg HSPRN PRN ORAL Insomnia 11/29/16 23:00 12/06/16 22:59 Trimethoprim/ Sulfamethoxazole (Bactrim-DS) 1 ea TWICE A DAY ORAL 12/02/16 18:00 12/09/16 17:59 12/04/16 09:06 Vancomycin HCl 1 ea 1 ea DAILY PRN MISC Per rx protocol 12/03/16 19:45 01/02/17 19:44 Vancomycin HCl/ Dextrose (Vancomycin/D5W) 275 ml @ 183.708 mls/hr Q12HR IVPB 12/03/16 21:00 12/08/16 20:59 12/04/16 09:06 SAM ALEJANDRO Dec 04, 2016 12:58
[2016-12-04] MEDS ORDERED: D5 1/2NS 1000ml IV ONE (14:13)
[2016-12-04] MEDS ORDERED: Tubing IV Secondary IV ONE (14:13)
--- NOTE | 2016-12-04 14:37 | Pulmonology Progress Note ---
Assessment/Plan Problems: (1) Polysubstance abuse (2) ESBL (extended spectrum beta-lactamase) producing bacteria infection (3) Cellulitis and abscess of leg Assessment/Plan improving IV abx anemia w/u prbc prn HIV (-) Subjective ROS Limited/Unobtainable: No Constitutional: Reports: no symptoms Respiratory: Reports: no symptoms Allergies: Coded Allergies: CLONIDINE (Verified Allergy, Mild, 02/10/09) PENICILLINS (Unverified Allergy, Unknown, 12/25/15) Objective Last 24 Hour Vital Signs Date Time Temp Pulse Resp B/P Pulse Ox O2 Delivery O2 Flow Rate FiO2 12/04/16 12:00 96.0 78 18 104/67 94 Room Air 12/04/16 08:10 70 18 Room Air 12/04/16 08:00 96.8 18 96/59 100 Room Air 12/04/16 04:00 97.9 89 20 121/71 97 Room Air 12/04/16 03:24 73 15 Room Air 12/04/16 00:00 97.2 110 20 103/75 100 Room Air 12/03/16 20:00 98.2 94 20 133/79 98 Room Air 12/03/16 16:39 97.7 12/03/16 16:00 97.0 110 18 126/65 99 Room Air Intake and Output 12/03/16 12/04/16 19:00 07:00 Intake Total 367.416 ml Balance 367.416 ml IV Total 367.416 ml # Voids 3 General Appearance: WD/WN, no acute distress HEENT: normocephalic, atraumatic Respiratory/Chest: chest wall non-tender, lungs clear Breasts: no masses Cardiovascular: normal rate Extremities: no cyanosis Skin: no rash Laboratory Tests 12/03/16 16:30: White Blood Count 6.7, Red Blood Count 4.63, Hemoglobin 9.4L, Hematocrit 30.7L, Mean Corpuscular Volume 66L, Mean Corpuscular Hemoglobin 20.4L, Mean Corpuscular Hemoglobin Concent 30.8L, Red Cell Distribution Width 16.1H, Platelet Count 673H, Mean Platelet Volume 4.6L, Neutrophils (%) (Auto) 52.3, Lymphocytes (%) (Auto) 36.2, Monocytes (%) (Auto) 7.5, Eosinophils (%) (Auto) 2.6, Basophils (%) (Auto) 1.4, Sodium Level 134L, Potassium Level 4.1, Chloride Level 95L, Carbon Dioxide Level 28, Anion Gap 11, Blood Urea Nitrogen 15, Creatinine 0.9, Estimat Glomerular Filtration Rate > 60, Glucose Level 125H, Calcium Level 9.0, Total Bilirubin 0.3, Aspartate Amino Transf (AST/SGOT) 10, Alanine Aminotransferase (ALT/SGPT) 7, Alkaline Phosphatase 83, Total Protein 9.2H, Albumin 2.9L, Globulin 6.3, Albumin/Globulin Ratio 0.4L, HIV (1&2) Antibody Rapid Negative 12/04/16 07:45: White Blood Count 6.7, Red Blood Count 4.97, Hemoglobin 9.7L, Hematocrit 33.2L, Mean Corpuscular Volume 67L, Mean Corpuscular Hemoglobin 19.5L, Mean Corpuscular Hemoglobin Concent 29.3L, Red Cell Distribution Width 16.6H, Platelet Count 676H, Mean Platelet Volume 4.5L, Neutrophils (%) (Auto) 44.0L, Lymphocytes (%) (Auto) 40.5, Monocytes (%) (Auto) 10.2H, Eosinophils (%) (Auto) 4.6H, Basophils (%) (Auto) 0.7, Sodium Level 135, Potassium Level 5.0H, Chloride Level 98, Carbon Dioxide Level 28, Anion Gap 9, Blood Urea Nitrogen 16 , Creatinine 0.7, Estimat Glomerular Filtration Rate > 60, Glucose Level 108H, Calcium Level 9.2, Vancomycin Level Trough 14.1H Current Medications Medications (Trade) Dose Ordered Sig/Gildardo Route PRN Reason Start Time Stop Time Status Last Admin Dose Admin Acetaminophen (Tylenol) 650 mg Q4H PRN ORAL fever 11/29/16 23:00 12/29/16 22:59 11/29/16 23:14 Albuterol/ Ipratropium (DuoNeb 0.5-3(2.5)mg/3ml) 3 ml Q4H PRN HHN Shortness of Breath 11/29/16 23:00 12/04/16 22:59 Cefazolin Sodium (Ancef 2gm/50ml premix) 50 ml @ 100 mls/hr Q8H IV 12/04/16 15:00 12/11/16 14:59 Dextrose (Dextrose 50%) STAT PRN IV Hypoglycemia 11/29/16 23:00 12/29/16 22:59 Divalproex Sodium (Depakote ER) 500 mg BEDTIME ORAL 12/03/16 21:00 01/02/17 20:59 12/03/16 20:38 Heparin Sodium (Porcine) (Heparin 5000 units/ml) 5,000 units EVERY 12 HOURS SUBQ 11/30/16 09:00 12/30/16 08:59 12/04/16 09:11 Hydralazine HCl (Apresoline) 10 mg Q6H PRN ORAL SBP > 160 11/30/16 19:15 12/30/16 19:14 Hydromorphone HCl 2 mg 2 mg Q4H PRN IVP For Pain 12/04/16 09:45 12/10/16 09:44 12/04/16 13:59 Nitroglycerin (Ntg) 0.4 mg Every 5 Minutes PRN SL Prn Chest Pain 11/29/16 23:00 12/29/16 22:59 Ondansetron HCl (Zofran) 4 mg Q4H PRN IVP Nausea & Vomiting 11/30/16 07:00 12/30/16 06:59 12/02/16 19:07 Polyethylene Glycol (Miralax) 17 gm DAILYPRN PRN ORAL Constipation 11/29/16 23:00 12/29/16 22:59 Temazepam (Restoril) 15 mg HSPRN PRN ORAL Insomnia 11/29/16 23:00 12/06/16 22:59 Trimethoprim/ Sulfamethoxazole (Bactrim-DS) 1 ea TWICE A DAY ORAL 12/02/16 18:00 12/09/16 17:59 12/04/16 09:06 FARHAT BASS Dec 04, 2016 14:37
[2016-12-04] MEDS: ceFAZolin 2gm/50ml Premix 50 ML IV SCH (15:06)
--- NOTE | 2016-12-04 15:27 | Internal Med Progress Note ---
Subjective Date of Service: Dec 04, 2016 Physician Name Cruz,Lyudmila Attending Physician Osman Ortiz MD Current Medications Medications (Trade) Dose Ordered Sig/Gildardo Route PRN Reason Start Time Stop Time Status Last Admin Dose Admin Acetaminophen (Tylenol) 650 mg Q4H PRN ORAL fever 11/29/16 23:00 12/29/16 22:59 11/29/16 23:14 Albuterol/ Ipratropium (DuoNeb 0.5-3(2.5)mg/3ml) 3 ml Q4H PRN HHN Shortness of Breath 11/29/16 23:00 12/04/16 22:59 Cefazolin Sodium (Ancef 2gm/50ml premix) 50 ml @ 100 mls/hr Q8H IV 12/04/16 15:00 12/11/16 14:59 12/04/16 15:06 Dextrose (Dextrose 50%) STAT PRN IV Hypoglycemia 11/29/16 23:00 12/29/16 22:59 Divalproex Sodium (Depakote ER) 500 mg BEDTIME ORAL 12/03/16 21:00 01/02/17 20:59 12/03/16 20:38 Heparin Sodium (Porcine) (Heparin 5000 units/ml) 5,000 units EVERY 12 HOURS SUBQ 11/30/16 09:00 12/30/16 08:59 12/04/16 09:11 Hydralazine HCl (Apresoline) 10 mg Q6H PRN ORAL SBP > 160 11/30/16 19:15 12/30/16 19:14 Hydromorphone HCl 2 mg 2 mg Q4H PRN IVP For Pain 12/04/16 09:45 12/10/16 09:44 12/04/16 13:59 Nitroglycerin (Ntg) 0.4 mg Every 5 Minutes PRN SL Prn Chest Pain 11/29/16 23:00 12/29/16 22:59 Ondansetron HCl (Zofran) 4 mg Q4H PRN IVP Nausea & Vomiting 11/30/16 07:00 12/30/16 06:59 12/02/16 19:07 Polyethylene Glycol (Miralax) 17 gm DAILYPRN PRN ORAL Constipation 11/29/16 23:00 12/29/16 22:59 Temazepam (Restoril) 15 mg HSPRN PRN ORAL Insomnia 11/29/16 23:00 12/06/16 22:59 Trimethoprim/ Sulfamethoxazole (Bactrim-DS) 1 ea TWICE A DAY ORAL 12/02/16 18:00 12/09/16 17:59 12/04/16 09:06 Allergies: Coded Allergies: CLONIDINE (Verified Allergy, Mild, 02/10/09) PENICILLINS (Unverified Allergy, Unknown, 12/25/15) ROS Limited/Unobtainable: No Constitutional: Reports: no symptoms HEENT: Reports: no symptoms Cardiovascular: Reports: no symptoms Respiratory: Reports: no symptoms Gastrointestinal/Abdominal: Reports: no symptoms Neurologic/Psychiatric: Reports: no symptoms Subjective 51 YO F admitted with abscess right thigh and bilat lower ext cellulitis. Now UTI with ESBL E. Coli. Cover for Int Med-Dr Ortiz.. Irritable; C/O pain. Objective Last Vital Signs Date Time Temp Pulse Resp B/P Pulse Ox O2 Delivery O2 Flow Rate FiO2 12/04/16 12:00 96.0 78 18 104/67 94 Room Air 12/01/16 21:14 21 Laboratory Tests Test 12/03/16 16:30 12/04/16 07:45 White Blood Count 6.7 K/UL (4.8-10.8) 6.7 K/UL (4.8-10.8) Red Blood Count 4.63 M/UL (4.20-5.40) 4.97 M/UL (4.20-5.40) Hemoglobin 9.4 G/DL (12.0-16.0) L 9.7 G/DL (12.0-16.0) L Hematocrit 30.7 % (37.0-47.0) L 33.2 % (37.0-47.0) L Mean Corpuscular Volume 66 FL (80-99) L 67 FL (80-99) L Mean Corpuscular Hemoglobin 20.4 PG (27.0-31.0) L 19.5 PG (27.0-31.0) L Mean Corpuscular Hemoglobin Concent 30.8 G/DL (32.0-36.0) L 29.3 G/DL (32.0-36.0) L Red Cell Distribution Width 16.1 % (11.6-14.8) H 16.6 % (11.6-14.8) H Platelet Count 673 K/UL (150-450) H 676 K/UL (150-450) H Mean Platelet Volume 4.6 FL (6.5-10.1) L 4.5 FL (6.5-10.1) L Neutrophils (%) (Auto) 52.3 % (45.0-75.0) 44.0 % (45.0-75.0) L Lymphocytes (%) (Auto) 36.2 % (20.0-45.0) 40.5 % (20.0-45.0) Monocytes (%) (Auto) 7.5 % (1.0-10.0) 10.2 % (1.0-10.0) H Eosinophils (%) (Auto) 2.6 % (0.0-3.0) 4.6 % (0.0-3.0) H Basophils (%) (Auto) 1.4 % (0.0-2.0) 0.7 % (0.0-2.0) Sodium Level 134 mEQ/L (135-145) L 135 mEQ/L (135-145) Potassium Level 4.1 mEQ/L (3.4-4.9) 5.0 mEQ/L (3.4-4.9) H Chloride Level 95 mEQ/L (98-107) L 98 mEQ/L (98-107) Carbon Dioxide Level 28 mEQ/L (20-30) 28 mEQ/L (20-30) Anion Gap 11 (5-15) 9 (5-15) Blood Urea Nitrogen 15 mg/dL (7-23) 16 mg/dL (7-23) Creatinine 0.9 mg/dL (0.5-0.9) 0.7 mg/dL (0.5-0.9) Estimat Glomerular Filtration Rate > 60 mL/min (>60) > 60 mL/min (>60) Glucose Level 125 mg/dL (74-106) H 108 mg/dL (74-106) H Calcium Level 9.0 mg/dL (8.6-10.2) 9.2 mg/dL (8.6-10.2) Total Bilirubin 0.3 mg/dL (0.0-1.2) Aspartate Amino Transf (AST/SGOT) 10 U/L (5-40) Alanine Aminotransferase (ALT/SGPT) 7 U/L (3-33) Alkaline Phosphatase 83 U/L (35-104) Total Protein 9.2 g/dL (6.6-8.7) H Albumin 2.9 g/dL (3.5-5.2) L Globulin 6.3 g/dL Albumin/Globulin Ratio 0.4 (1.0-2.7) L HIV (1&2) Antibody Rapid Negative (NEGATIVE) Vancomycin Level Trough 14.1 ug/mL (5.0-12.0) H Intake and Output 12/03/16 12/04/16 19:00 07:00 Intake Total 367.416 ml Balance 367.416 ml IV Total 367.416 ml # Voids 3 Objective General Appearance: alert, mild distress, thin, agitated EENT: PERRL/EOMI, normal ENT inspection Neck: non-tender, supple, normal inspection Cardiovascular: normal peripheral pulses, normal rate, regular rhythm, no gallop/murmur, no JVD Respiratory/Chest: chest wall non-tender, lungs clear, normal breath sounds, no respiratory distress, no accessory muscle use Abdomen: normal bowel sounds, non tender, soft, no organomegaly, no mass Extremities: normal range of motion 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 Cont ancef and bactrim per ID (2) E coli infection (3) ESBL (extended spectrum beta-lactamase) producing bacteria infection (4) Staph aureus infection (5) Streptococcus infection, group A (6) UTI (urinary tract infection) Assessment & Plan: ESBL E. Coli. Cont bactrim per ID (7) Polysubstance abuse Assessment & Plan: IV. See psych note. Status: progressing Assessment/Plan Discharge planning:[facility] 12/05/16 LYUDMILA CRUZ Dec 04, 2016 15:27
--- NOTE | 2016-12-04 17:00 | Progress Note ---
DATE: 12/04/2016 SUBJECTIVE: The patient's mental condition is unchanged. Continues to be irritable and has med-seeking behavior. I suggested inpatient rehabilitation. The ex- was contacted and the plan for the patient is to be transferred to the substance use disorder facility. The patient is irritable and has low energy. She is uncooperative during the examination. She is still reluctant to take any psychotropic medications and believes she does not need to take any medications. MENTAL STATUS EXAMINATION: The patient is alert and oriented x4. Mood is irritable. Affect is constricted. Congruent with mood. Thought process is concrete. Thought content, there is no suicidal or homicidal ideation. ASSESSMENT: Polysubstance dependence. PLAN: 1. The patient will be continued on current medication. 2. Provide the patient with supportive therapy and reality orientation. Abel Medrano M.D. DR: FAYE JOB#: [id number] CC:
[2016-12-04] MEDS: Depakote ER 500mg tab ORAL SCH (21:03)
[2016-12-05] MEDS: ceFAZolin 2gm/50ml Premix 50 ML IV SCH ×3 (00:24→15:30)
[2016-12-05 04:00] VITALS: BP 111/78
[2016-12-05 06:36] LABS: MEAN CORPUSCULAR VOLUME 67 FL (80-99); MEAN PLATELET VOLUME 4.6 FL (6.5-10.1); PLATELET COUNT 623 K/UL (150-450); RED CELL DISTRIBUTION WIDTH 16.1 % (11.6-14.8); WHITE BLOOD COUNT 5.8 K/UL (4.8-10.8)
[2016-12-05 06:37] LABS: PROTHROMBIN TIME 10.1 SEC (9.30-11.50)
[2016-12-05 08:00] VITALS: BP 99/62
[2016-12-05] MEDS: Bactrim DS (160mg/800mg) tab ORAL SCH (09:24)
[2016-12-05] MEDS: Heparin 5000 units/ml inj SUBQ SCH (09:28)
[2016-12-05 09:33] LABS: PATH BLOOD SMEAR/OMC SENT TO PATHOLOGIST
[2016-12-05 09:37] LABS: BAND NEUTROPHILS % (MANUAL) 0 % (0-8); BASOPHILS % (MANUAL) 0 % (0-2); EOSINOPHILS % (MANUAL) 3 % (0-3); LYMPHOCYTES % (MANUAL) 44 % (20-45); MICROCYTES 2+; NEUTROPHILS % (MANUAL) 46 % (45-75); PLATELET ESTIMATE ADEQUATE; PLATELET MORPHOLOGY NORMAL; TOTAL CELLS COUNTED 100
[2016-12-05 09:38] LABS: ANISOCYTOSIS 2+
[2016-12-05 10:22] LABS: ERYTHROCYTE SEDIMENTATION RATE 75 MM/HR (0-20)
[2016-12-05 10:30] LABS: RETICULOCYTE COUNT 1.5 % (0.0-2.0)
--- NOTE | 2016-12-05 10:38 | Internal Med Progress Note ---
Subjective Date of Service: Dec 05, 2016 Physician Name Gigi Cruz Attending Physician Osman Ortiz MD Current Medications Medications (Trade) Dose Ordered Sig/Gildardo Route PRN Reason Start Time Stop Time Status Last Admin Dose Admin Acetaminophen (Tylenol) 650 mg Q4H PRN ORAL fever 11/29/16 23:00 12/29/16 22:59 11/29/16 23:14 Cefazolin Sodium 50 ml @ 100 mls/hr Q8H IV 12/04/16 15:00 12/11/16 14:59 12/05/16 06:45 Dextrose (Dextrose 50%) STAT PRN IV Hypoglycemia 11/29/16 23:00 12/29/16 22:59 Divalproex Sodium (Depakote ER) 500 mg BEDTIME ORAL 12/03/16 21:00 01/02/17 20:59 12/04/16 21:03 Heparin Sodium (Porcine) (Heparin 5000 units/ml) 5,000 units EVERY 12 HOURS SUBQ 11/30/16 09:00 12/30/16 08:59 12/05/16 09:28 Hydralazine HCl (Apresoline) 10 mg Q6H PRN ORAL SBP > 160 11/30/16 19:15 12/30/16 19:14 Hydromorphone HCl (Dilaudid) 2 mg Q4H PRN IVP For Pain 12/04/16 09:45 12/10/16 09:44 12/05/16 06:45 Nitroglycerin (Ntg) 0.4 mg Every 5 Minutes PRN SL Prn Chest Pain 11/29/16 23:00 12/29/16 22:59 Ondansetron HCl (Zofran) 4 mg Q4H PRN IVP Nausea & Vomiting 11/30/16 07:00 12/30/16 06:59 12/02/16 19:07 Polyethylene Glycol (Miralax) 17 gm DAILYPRN PRN ORAL Constipation 11/29/16 23:00 12/29/16 22:59 Temazepam (Restoril) 15 mg HSPRN PRN ORAL Insomnia 11/29/16 23:00 12/06/16 22:59 Trimethoprim/ Sulfamethoxazole (Bactrim-DS) 1 ea TWICE A DAY ORAL 12/02/16 18:00 12/09/16 17:59 12/05/16 09:24 Allergies: Coded Allergies: CLONIDINE (Verified Allergy, Mild, 02/10/09) PENICILLINS (Unverified Allergy, Unknown, 12/25/15) ROS Limited/Unobtainable: No Constitutional: Reports: no symptoms HEENT: Reports: no symptoms Cardiovascular: Reports: no symptoms Respiratory: Reports: no symptoms Gastrointestinal/Abdominal: Reports: no symptoms Genitourinary: Reports: no symptoms Neurologic/Psychiatric: Reports: no symptoms Subjective 51 YO F admitted with abscess right thigh and bilat lower ext cellulitis. Now UTI with ESBL E. Coli. Cover for Int Med-Dr Ortiz.. Await discharge to [facility] today Objective Last Vital Signs Date Time Temp Pulse Resp B/P (MAP) Pulse Ox O2 Delivery O2 Flow Rate FiO2 12/05/16 08:00 97.3 75 17 99/62 99 Room Air 12/01/16 21:14 21 Laboratory Tests Test 12/05/16 05:45 White Blood Count 5.8 K/UL (4.8-10.8) Red Blood Count 4.20 M/UL (4.20-5.40) Hemoglobin 8.4 G/DL (12.0-16.0) L Hematocrit 28.0 % (37.0-47.0) L Mean Corpuscular Volume 67 FL (80-99) L Mean Corpuscular Hemoglobin 20.0 PG (27.0-31.0) L Mean Corpuscular Hemoglobin Concent 30.0 G/DL (32.0-36.0) L Red Cell Distribution Width 16.1 % (11.6-14.8) H Platelet Count 623 K/UL (150-450) H Mean Platelet Volume 4.6 FL (6.5-10.1) L Neutrophils (%) (Auto) % (45.0-75.0) Lymphocytes (%) (Auto) % (20.0-45.0) Monocytes (%) (Auto) % (1.0-10.0) Eosinophils (%) (Auto) % (0.0-3.0) Basophils (%) (Auto) % (0.0-2.0) Differential Total Cells Counted 100 Neutrophils % (Manual) 46 % (45-75) Lymphocytes % (Manual) 44 % (20-45) Monocytes % (Manual) 7 % (1-10) Eosinophils % (Manual) 3 % (0-3) Basophils % (Manual) 0 % (0-2) Band Neutrophils 0 % (0-8) Platelet Estimate Adequate Platelet Morphology Normal Anisocytosis 2+ Microcytosis 2+ Erythrocyte Sedimentation Rate 75 MM/HR (0-20) H Reticulocyte Count 1.5 % (0.0-2.0) Prothrombin Time 10.1 SEC (9.30-11.50) Prothromb Time International Ratio 1.0 (0.9-1.1) Activated Partial Thromboplast Time 28 SEC (23-33) Iron Level 20 ug/dL (37-145) L Total Iron Binding Capacity 361 ug/dL (250-400) Percent Iron Saturation 6 % (15-50) L Unsaturated Iron Binding 341 ug/dL (112-346) Lactate Dehydrogenase 133 U/L (135-230) L Carcinoembryonic Antigen 2.9 ng/mL Vitamin B12 Level 459 pg/mL (211-946) Folate Pending Objective General Appearance: alert, mild distress, thin, agitated EENT: PERRL/EOMI, normal ENT inspection Neck: non-tender, supple, normal inspection Cardiovascular: normal peripheral pulses, normal rate, regular rhythm, no gallop/murmur, no JVD Respiratory/Chest: chest wall non-tender, lungs clear, normal breath sounds, no respiratory distress, no accessory muscle use Abdomen: normal bowel sounds, non tender, soft, no organomegaly, no mass Extremities: normal range of motion 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 Cont ancef and bactrim per ID (2) E coli infection (3) ESBL (extended spectrum beta-lactamase) producing bacteria infection (4) Staph aureus infection (5) Streptococcus infection, group A (6) UTI (urinary tract infection) Assessment & Plan: ESBL E. Coli. Cont bactrim per ID (7) Polysubstance abuse Assessment & Plan: IV. See psych note. Status: stable Assessment/Plan Discharge planning:[facility] 12/05/16 GIGI CRUZ Dec 05, 2016 10:38
[2016-12-05] MEDS ORDERED: CEPHALEXIN500 MG ORAL (10:40)
[2016-12-05] MEDS ORDERED: SUBOXONE 8 MG-1 EAC2 SL (11:39)
[2016-12-05] MEDS ORDERED: BUPRENORPHINE HC8 MG SL (11:58)
[2016-12-05 12:00] VITALS: BP 110/73
--- NOTE | 2016-12-05 13:54 | Pulmonology Progress Note ---
Assessment/Plan Problems: (1) Polysubstance abuse (2) ESBL (extended spectrum beta-lactamase) producing bacteria infection (3) Cellulitis and abscess of leg Assessment/Plan improving oral abx anemia w/u prbc prn HIV (-) pt agreed to leave home Subjective ROS Limited/Unobtainable: No Constitutional: Reports: no symptoms HEENT: Repors: no symptoms Respiratory: Reports: no symptoms Cardiovascular: Reports: no symptoms Allergies: Coded Allergies: CLONIDINE (Verified Allergy, Mild, 02/10/09) PENICILLINS (Unverified Allergy, Unknown, 12/25/15) Objective Last 24 Hour Vital Signs Date Time Temp Pulse Resp B/P (MAP) Pulse Ox O2 Delivery O2 Flow Rate FiO2 12/05/16 12:00 97.0 70 18 110/73 99 Room Air 12/05/16 08:00 97.3 75 17 99/62 99 Room Air 12/05/16 07:47 74 18 Room Air 12/05/16 04:00 96.8 83 18 111/78 100 Room Air 12/04/16 23:23 97.4 88 18 103/56 97 Room Air 12/04/16 20:00 97.0 88 18 117/71 97 Room Air 12/04/16 19:05 77 18 Room Air 12/04/16 16:00 98.1 75 17 97/57 95 Room Air General Appearance: WD/WN, no acute distress HEENT: normocephalic, atraumatic Respiratory/Chest: chest wall non-tender, lungs clear Breasts: no masses Cardiovascular: normal peripheral pulses Abdomen: normal bowel sounds, soft, non tender Genitourinary: normal external genitalia Extremities: no cyanosis Skin: no rash Neurologic/Psychiatric: 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 grossly normal, no motor/sensory deficits Laboratory Tests 12/05/16 05:45: White Blood Count 5.8, Red Blood Count 4.20, Hemoglobin 8.4L, Hematocrit 28.0L, Mean Corpuscular Volume 67L, Mean Corpuscular Hemoglobin 20.0L, Mean Corpuscular Hemoglobin Concent 30.0L, Red Cell Distribution Width 16.1H, Platelet Count 623H, Mean Platelet Volume 4.6L, Neutrophils (%) (Auto) , Lymphocytes (%) (Auto) , Monocytes (%) (Auto) , Eosinophils (%) (Auto) , Basophils (%) (Auto) , Differential Total Cells Counted 100, Neutrophils % ( Manual) 46, Lymphocytes % (Manual) 44, Monocytes % (Manual) 7, Eosinophils % ( Manual) 3, Basophils % (Manual) 0, Band Neutrophils 0, Platelet Estimate Adequate, Platelet Morphology Normal, Anisocytosis 2+, Microcytosis 2+, Erythrocyte Sedimentation Rate 75H, Reticulocyte Count 1.5, Prothrombin Time 10.1, Prothromb Time International Ratio 1.0, Activated Partial Thromboplast Time 28, Iron Level 20L, Total Iron Binding Capacity 361, Percent Iron Saturation 6L, Unsaturated Iron Binding 341, Lactate Dehydrogenase 133L, Carcinoembryonic Antigen 2.9, Vitamin B12 Level 459, Folate [Pending] Current Medications Medications (Trade) Dose Ordered Sig/Gildardo Route PRN Reason Start Time Stop Time Status Last Admin Dose Admin Acetaminophen (Tylenol) 650 mg Q4H PRN ORAL fever 11/29/16 23:00 12/29/16 22:59 11/29/16 23:14 Cefazolin Sodium 50 ml @ 100 mls/hr Q8H IV 12/04/16 15:00 12/11/16 14:59 12/05/16 06:45 Dextrose (Dextrose 50%) STAT PRN IV Hypoglycemia 11/29/16 23:00 12/29/16 22:59 Divalproex Sodium (Depakote ER) 500 mg BEDTIME ORAL 12/03/16 21:00 01/02/17 20:59 12/04/16 21:03 Heparin Sodium (Porcine) (Heparin 5000 units/ml) 5,000 units EVERY 12 HOURS SUBQ 11/30/16 09:00 12/30/16 08:59 12/05/16 09:28 Hydralazine HCl (Apresoline) 10 mg Q6H PRN ORAL SBP > 160 11/30/16 19:15 12/30/16 19:14 Hydromorphone HCl (Dilaudid) 2 mg Q4H PRN IVP For Pain 12/04/16 09:45 12/10/16 09:44 12/05/16 10:56 Nitroglycerin (Ntg) 0.4 mg Every 5 Minutes PRN SL Prn Chest Pain 11/29/16 23:00 12/29/16 22:59 Ondansetron HCl (Zofran) 4 mg Q4H PRN IVP Nausea & Vomiting 11/30/16 07:00 12/30/16 06:59 12/02/16 19:07 Polyethylene Glycol (Miralax) 17 gm DAILYPRN PRN ORAL Constipation 11/29/16 23:00 12/29/16 22:59 Temazepam (Restoril) 15 mg HSPRN PRN ORAL Insomnia 11/29/16 23:00 12/06/16 22:59 Trimethoprim/ Sulfamethoxazole (Bactrim-DS) 1 ea TWICE A DAY ORAL 12/02/16 18:00 12/09/16 17:59 12/05/16 09:24 FARHAT BASS Dec 05, 2016 13:54
[2016-12-05] MEDS ORDERED: NS 275ml ONE (15:59)
--- NOTE | 2016-12-05 22:55 | General Progress Note ---
Assessment/Plan Status: stable Assessment/Plan ASSESSMENT: 1. Polysubstance dependence including intravenous use drugs. 2. Abscess in the right thigh area with cellulitis. 3. Urinary tract infection. PLAN: 1. The patient will be continued on current care, which is antibiotics. The patient is reluctant to receive any other psychotropic medications besides benzodiazepine. 2. We would recommend inpatient drug rehabilitation. 3. We will continue to follow and encourage her to take medications Subjective Allergies: Coded Allergies: CLONIDINE (Verified Allergy, Mild, 02/10/09) PENICILLINS (Unverified Allergy, Unknown, 12/25/15) Subjective The patient was found in bed, resting, continued to be demanding. She has poor insight and judgment into her mental condition. She is irritable. Objective Last 24 Hour Vital Signs Date Time Temp Pulse Resp B/P (MAP) Pulse Ox O2 Delivery O2 Flow Rate FiO2 12/05/16 12:00 97.0 70 18 110/73 99 Room Air 12/05/16 08:00 97.3 75 17 99/62 99 Room Air 12/05/16 07:47 74 18 Room Air 12/05/16 04:00 96.8 83 18 111/78 100 Room Air 12/04/16 23:23 97.4 88 18 103/56 97 Room Air Intake and Output 12/05/16 12/06/16 19:00 07:00 Intake Total 1050 ml Balance 1050 ml Intake Oral 1000 ml IV Total 50 ml # Voids 4 Laboratory Tests 12/05/16 05:45: White Blood Count 5.8, Red Blood Count 4.20, Hemoglobin 8.4L, Hematocrit 28.0L, Mean Corpuscular Volume 67L, Mean Corpuscular Hemoglobin 20.0L, Mean Corpuscular Hemoglobin Concent 30.0L, Red Cell Distribution Width 16.1H, Platelet Count 623H, Mean Platelet Volume 4.6L, Neutrophils (%) (Auto) , Lymphocytes (%) (Auto) , Monocytes (%) (Auto) , Eosinophils (%) (Auto) , Basophils (%) (Auto) , Differential Total Cells Counted 100, Neutrophils % ( Manual) 46, Lymphocytes % (Manual) 44, Monocytes % (Manual) 7, Eosinophils % ( Manual) 3, Basophils % (Manual) 0, Band Neutrophils 0, Platelet Estimate Adequate, Platelet Morphology Normal, Anisocytosis 2+, Microcytosis 2+, Erythrocyte Sedimentation Rate 75H, Reticulocyte Count 1.5, Prothrombin Time 10.1, Prothromb Time International Ratio 1.0, Activated Partial Thromboplast Time 28, Iron Level 20L, Total Iron Binding Capacity 361, Percent Iron Saturation 6L, Unsaturated Iron Binding 341, Lactate Dehydrogenase 133L, Carcinoembryonic Antigen 2.9, Vitamin B12 Level 459, Folate [Pending] Height (Feet): 5 Height (Inches): 11.00 Weight (Pounds): 130 General Appearance: no apparent distress, alert, thin Neurologic: alert, oriented x 3, responsive, depressed affect Objective The patient is alert and oriented x3. Her mood is irritable. Affect is constricted, congruent with mood. Thought process is concrete. Thought content, no suicidal or homicidal ideation. Cognition is intact. Insight and judgment is impaired. Abel Medrano M.D. Dec 05, 2016 22:55
--- NOTE | 2016-12-06 17:56 | Discharge Summary ---
Discharge Summary Hospital Course Date of Admission Nov 29, 2016 at 21:54 Date of Discharge Dec 05, 2016 at 16:00 Admitting Diagnosis cellulitis HPI Nenita Morales is a 51 year old female who was admitted on Nov 29, 2016 at 21:54 for Cellulitis Hospital Course [id number] Discharge Discharge Disposition Patient was discharged to sober living Discharge Diagnoses: Tania Sutherland NP Dec 06, 2016 17:56
[2016-12-07 11:28] LABS: OTHERS PATHOLOGIST COMMENT
--- NOTE | 2016-12-08 01:45 | Discharge Summary 2 SIG ---
DATE OF ADMISSION: 11/29/2016 DATE OF DISCHARGE: 12/05/2016 CONSULTANTS: 1. Abel Medrano M.D. 2. Jimy Vizcaino M.D. 3. Eda Rankin M.D. 4. Erwin Luna M.D. BRIEF HOSPITAL COURSE: The patient is a 51-year-old female with past medical history significant for substance abuse, heroin abuse, and history of intravenous drug use, presented to the hospital complaining of left hip pain, which is tender to touch. She has a history of methicillin-resistant Staphylococcus aureus infection of the wound in the past and has complained about chills without any documented fever. The pain became progressively worsened and subsequently decided to come to the hospital. Shortly after initial evaluation in the emergency room, laboratories showed leukocytosis. Chest x-ray was unremarkable. She was admitted for cellulitis, abscess of the lower extremity, and history of IV drug use. She was admitted to medical floor and was seen by Infectious Disease specialist and was given vancomycin and ciprofloxacin. She underwent surgical evaluation and on examination of bilateral lower extremity revealed large area of erythema and induration covering the lateral hip as well as lateral upper thigh area. There is tenderness to palpation and with multiple track sharp noted throughout the extensive soft tissue area on each side. Upon palpation, there was no pus or fluid from any openings. There is no odor and no fluctuance noted. Hip and pelvic x-ray showed no acute process. CT of the pelvis showed a diffuse subcutaneous reticulation of the bilateral hip and thigh compatible with history with no evident drainable abscess. She was provided with local wound care and was counseled on abstinence from street drugs. She underwent psychiatric evaluation and was diagnosed to have polysubstance abuse disorder. The patient was reluctant to receive psychotropic medications besides Klonopin. Urine culture showed growth of ESBL E. coli and wound culture with Staphylococcus aureus. Vancomycin and Bactrim are appropriate. Social service was called in for discharge planning and was eventually discharged to a sober living. FINAL DIAGNOSES: 1. Cellulitis and abscess of leg with Staphylococcus aureus and group A strep. 2. Urinary tract infection, extended spectrum beta-lactamases Escherichia coli infection. 3. Polysubstance abuse. 4. Left and right trochanter abscess with multiple open wounds on both upper and lower extremities, present on admission. DISPOSITION: The patient was discharged to [facility]. DISCHARGE MEDICATIONS: Continue Keflex 500 mg q.6 hours for 10 days. Refer to medication list. FOLLOWUP: Follow up as an outpatient in a week. ACTIVITY: As tolerated. Gigi Moss M.D. I have been assigned to dictate discharge summary on this account and I was not involved in the patient's management. Tania Sutherland N.P. DR: BREE JOB#: [id number] CC: ADRIENNE
== END 2016-12-05 16:00 | disposition home or self-care (01) | DRG 603 ==
LOC: EMR 21:51 → 4E 21:54 → EDBEDREQ 22:19
DX: L03.115 Cellulitis of right lower limb (principal); R64 Cachexia; N39.0 Urinary tract infection, site not specified; F11.20 Opioid dependence, uncomplicated; E87.1 Hypo-osmolality and hyponatremia; L02.416 Cutaneous abscess of left lower limb; L02.415 Cutaneous abscess of right lower limb; I10 Essential (primary) hypertension; D64.9 Anemia, unspecified; L03.116 Cellulitis of left lower limb; F17.200 Nicotine dependence, unspecified, uncomplicated; F15.10 Other stimulant abuse, uncomplicated; B96.20 Unspecified Escherichia coli [E. coli] as the cause of diseases classified elsewhere; B95.62 Methicillin resistant Staphylococcus aureus infection as the cause of diseases classified elsewhere; Z16.12 Extended spectrum beta lactamase (ESBL) resistance; B95.0 Streptococcus, group A, as the cause of diseases classified elsewhere; Z76.5 Malingerer [conscious simulation]; Z88.0 Allergy status to penicillin; Z86.14 Personal history of Methicillin resistant Staphylococcus aureus infection
CPT/HCPCS: 36415; 71010; 72170; 72193; 80048; 80053; 80202; 80300; 81003; 82270; 82378; 82550; 82607; 82746; 83540; 83550; 83605; 83615; 84484; 85007; 85025; 85044; 85060; 85610; 85651; 85730; 86703; 86850; 86900; 86901; 86920; 87040; 87070; 87086; 87181; 87205; 93005; 94664; 97802; 99285; J2405